=== PATIENT | female | born 1965 | race Two or more races ===

== ENCOUNTER 2020-10-24 17:01 | Outpatient (REF) | payer MEDICARE, MEDICAID, SELFPAY | END 2020-10-24 17:02 | disposition home or self-care (01) | LOC: HO.LNP 17:01 | PROVIDERS: Visit Provider Internal Medicine | DX: Z20.828 Contact with and (suspected) exposure to other viral communicable diseases (principal) | CPT/HCPCS: U0003 ==

== ENCOUNTER 2021-03-29 11:30 | Outpatient (REF) | payer MEDICARE, MEDICAID, SELFPAY ==
[2021-03-29 13:24] LABS: MANUAL DIFF FLAG NO
[2021-03-29 13:30] LABS: Basophils Absolute Auto 0.1 X10*3/uL (0.0-0.2); Eosinophils Absolute Auto 0.2 X10*3/uL (0.0-0.4); Eosinophils Percent Auto 2.1 % (0-4); Hematocrit 42.1 % (37-47); Hemoglobin 14.3 g/dl (12.0-16.0); Imm Gran Abs Auto 0.02 X10*3/uL (0.00-0.03); Imm Gran Pct Auto 0.2 % (0.0-0.4); Lymphocytes Absolute Auto 2.4 X10*3/uL (1.2-4.9); Lymphocytes Percent Auto 29.3 % (20-40); Mean Corpuscular Hemoglobin 29.8 pg (27.0-33.0); Mean Corpuscular Volume 87.7 fL (80-98); Mean Platelet Volume 9.8 fL (9.4-12.3); Monocytes Absolute Auto 0.6 X10*3/uL (0.1-1.2); Monocytes Percent Auto 7.1 % (2-11); Neutrophils Percent Auto 60.3 % (45-73); Platelet Count 337 X10*3/uL (160-400); Red Cell Distribution Width 12.5 % (11.0-16.0); White Blood Count 8.3 X10*3/uL (4.8-10.8)
[2021-03-29 13:49] LABS: Appearance Urine HAZY; Color Urine YELLOW; Glucose Urine UA NEG (NEG); Leukocyte Esterase Urine 1+ (NEG); Nitrite Urine NEG (NEG); Specific Gravity - Urine 1.025 (1.005-1.025); Urine Blood NEG (NEG); Urine Ketones NEG (NEG); Urine Protein NEG (NEG-TRACE)
[2021-03-29 13:58] LABS: RBC Urine 0 /HPF (0); Squamous Epithelial Cell Urine 1+ /LPF
[2021-03-29 14:14] LABS: Alanine Aminotransferase 24 U/L (0-31); Albumin Level 4.3 g/dL (3.5-5.0); Alkaline Phosphatase 115 U/L (39-117); Anion Gap 13 (12-20); Aspartate Amino Transferase 15 U/L (5-31); Bilirubin Total 0.9 mg/dL (0.0-1.0); Blood Urea Nitrogen 11 mg/dL (9-16); Chloride 106 mmol/L (96-108); Cholesterol 154 mg/dL; Estimated Glomerular Filt Rate > 60; Glucose Fasting 152 mg/dL (60-99); HDL Cholesterol 31 mg/dL; LDL Cholesterol Calculated 96 mg/dl; Phosphorus 3.3 mg/dL (2.7-4.5); Potassium 4.4 mmol/L (3.3-5.1); Sodium 138 mmol/L (135-145); Total Protein 7.3 g/dL (6.5-8.0); Triglycerides 135 mg/dL
[2021-03-29 14:16] LABS: Carbon Dioxide 23 mmol/L (22-29)
[2021-03-29 14:21] LABS: Estimated Average Glucose 237 mg/dL; Hemoglobin A1c % 9.9 %
[2021-03-29 14:27] LABS: Free T4 (Free Thyroxine) 2.47 ng/dL (0.71-1.85); Thyroid Stimulating Hormone < 0.01 uIU/mL (0.32-4.0); Vitamin D 25-OH Total 9.8 ng/mL (>30)
[2021-03-29 14:36] LABS: Creatinine Urine 121.06 mg/dL; Microalbum/Creatinine Ratio Ur 14.8 ug/mg cr
== END 2021-03-29 11:31 | disposition home or self-care (01) ==
LOC: HO.10HDL 11:30
PROVIDERS: Visit Provider Internal Medicine
DX: E11.9 Type 2 diabetes mellitus without complications (principal); I10 Essential (primary) hypertension; M06.9 Rheumatoid arthritis, unspecified; E03.9 Hypothyroidism, unspecified; E78.00 Pure hypercholesterolemia, unspecified
CPT/HCPCS: 36415; 80053; 80061; 81001; 82043; 82306; 83036; 84100; 84439; 84443; 85025

== ENCOUNTER 2021-04-13 11:28 | Outpatient (REF) | payer MEDICARE, MEDICAID, SELFPAY ==
--- NOTE | ~2021-04-13 | MM_ITS ---
EXAMINATION: MM SCREENING DIGITAL BREAST TOMOSYNTHESIS, BILATERAL CLINICAL INFORMATION: Screening. Asymptomatic. The lifetime risk of breast cancer based on the Tyrer-Cuzick Model is 5%. COMPARISON: Mammography: 08/20/2019, 02/11/2008 TECHNIQUE: Digital breast tomosynthesis is performed in both the craniocaudal and mediolateral oblique views along with computer-aided detection (CAD). Synthesized 2D images are generated from the tomosynthesis. FINDINGS: There are scattered areas of fibroglandular density (ACR BI-RADS breast composition Category b). There are no significant masses, abnormal calcifications, or other abnormalities. Parenchymal pattern is similar to prior exam. The axilla and skin contours are unremarkable. No significant changes. MM/MM tomosynthesis screening BI IMPRESSION: No mammographic evidence of malignancy. ASSESSMENT: BI-RADS 1: Negative RECOMMENDATION: Routine annual mammography screening. This patient's information was entered into a reminder system with a target due date for their next mammogram.
== END 2021-04-13 11:29 | disposition home or self-care (01) ==
LOC: HO.MAMMO 11:28
PROVIDERS: PCP Internal Medicine; Visit Provider Internal Medicine
DX: Z12.31 Encounter for screening mammogram for malignant neoplasm of breast (principal)
CPT/HCPCS: 77063; 77067

== ENCOUNTER 2021-04-17 12:53 | Outpatient (REF) | payer MEDICARE, MEDICAID, SELFPAY ==
[2021-04-21 09:27] LABS: HPV mRNA E6/E7 rflx Not Detected (Not Detected)
== END 2021-04-17 12:54 | disposition home or self-care (01) ==
LOC: HO.LAB 12:53
PROVIDERS: PCP Internal Medicine; Visit Provider Obstetrics & Gynecology
DX: Z01.419 Encounter for gynecological examination (general) (routine) without abnormal findings (principal); R10.31 Right lower quadrant pain
CPT/HCPCS: 87624; 88142

== ENCOUNTER 2021-04-27 11:14 | Outpatient (REF) | payer MEDICARE, MEDICAID, SELFPAY ==
--- NOTE | ~2021-04-27 | US_ITS ---
EXAMINATION: PELVIC ULTRASOUND CLINICAL INFORMATION: Pain. Post hysterectomy. COMPARISON: None TECHNIQUE: Transabdominal and transvaginal pelvic ultrasound was marked. Transvaginal exam was performed for visualization of. FINDINGS: The uterus has been removed. The ovaries are normal-appearing. The right ovary measures 2.4 x 0.9 x 1.6 cm. The left ovary measures 1.6 x 1 x 1.2 cm. There is no mass or fluid in the pelvis. US/US pelvic and transvaginal IMPRESSION: Post hysterectomy. Normal-appearing ovaries.
== END 2021-04-27 11:15 | disposition home or self-care (01) ==
LOC: HO.US 11:14
PROVIDERS: Visit Provider Obstetrics & Gynecology
DX: R10.2 Pelvic and perineal pain (principal)
CPT/HCPCS: 76830; 76856

== ENCOUNTER → 2021-05-10 12:04 | Outpatient (BNVA) | payer MEDICARE, MEDICAID, SELFPAY | PROVIDERS: PCP Internal Medicine; Visit Provider Obstetrics & Gynecology | DX: R10.2 Pelvic and perineal pain (principal) | CPT/HCPCS: Q3014 ==

== ENCOUNTER 2022-03-19 15:52 | Outpatient (REF) | payer MEDICARE, MEDICAID, SELFPAY ==
[2022-03-19 17:09] LABS: Estimated Average Glucose 269 mg/dL
[2022-03-19 17:25] LABS: Anion Gap 13 (12-20); Blood Urea Nitrogen 9 mg/dL (9-16); Calcium 10.3 mg/dL (8.4-10.2); Carbon Dioxide 24 mmol/L (22-29); Chloride 103 mmol/L (96-108); Estimated Glomerular Filt Rate > 60; Glucose Random 312 mg/dL (60-115); Potassium 4.4 mmol/L (3.3-5.1); Sodium 136 mmol/L (135-145)
[2022-03-19 17:29] LABS: Creatinine Urine 119.39 mg/dL; Microalbum/Creatinine Ratio Ur 9.2 ug/mg cr
[2022-03-19 17:44] LABS: Free T4 (Free Thyroxine) 0.76 ng/dL (0.71-1.85); Thyroid Stimulating Hormone 2.88 uIU/mL (0.32-4.0)
== END 2022-03-19 15:53 | disposition home or self-care (01) ==
LOC: HO.LAB 15:52
PROVIDERS: PCP Internal Medicine; Visit Provider Internal Medicine
DX: E03.9 Hypothyroidism, unspecified (principal); I10 Essential (primary) hypertension; E11.9 Type 2 diabetes mellitus without complications; M06.9 Rheumatoid arthritis, unspecified
CPT/HCPCS: 36415; 80048; 82043; 83036; 84439; 84443

== ENCOUNTER 2022-04-16 11:48 | Outpatient (REF) | payer OTHER, SELFPAY ==
--- NOTE | ~2022-04-16 | MM_ITS ---
EXAMINATION: MM SCREENING DIGITAL BREAST TOMOSYNTHESIS, BILATERAL CLINICAL INFORMATION: Screening. Asymptomatic. The lifetime risk of breast cancer based on the Tyrer-Cuzick Model is 4.8%. COMPARISON: Mammography: April 13, 2021 and studies dating back to February 11, 2008 TECHNIQUE: Digital breast tomosynthesis is performed in both the craniocaudal and mediolateral oblique views along with computer-aided detection (CAD). Synthesized 2D images are generated from the tomosynthesis. FINDINGS: There are scattered areas of fibroglandular density (ACR BI-RADS breast composition Category b). There are no significant masses, abnormal calcifications, or other abnormalities. MM/MM tomosynthesis screening BI IMPRESSION: There are no significant changes from prior study. ASSESSMENT: BI-RADS 1: Negative RECOMMENDATION: Routine annual mammography screening. This patient's information was entered into a reminder system with a target due date for their next mammogram.
== END 2022-04-16 11:49 | disposition home or self-care (01) ==
LOC: HO.MAMMO 11:48
PROVIDERS: Visit Provider Internal Medicine
DX: Z12.31 Encounter for screening mammogram for malignant neoplasm of breast (principal)
CPT/HCPCS: 77063; 77067

== ENCOUNTER 2022-07-03 14:14 | Outpatient (REF) | payer OTHER, SELFPAY ==
[2022-07-03 15:37] LABS: Blood Urea Nitrogen 9 mg/dL (9-16); Estimated Glomerular Filt Rate > 60
== END 2022-07-03 14:15 | disposition home or self-care (01) ==
LOC: HO.LAB 14:14
PROVIDERS: PCP Internal Medicine; Visit Provider Obstetrics & Gynecology
DX: R10.2 Pelvic and perineal pain (principal)
CPT/HCPCS: 36415; 82565; 84520

== ENCOUNTER 2022-07-04 08:23 | Outpatient (REF) | payer OTHER, SELFPAY ==
--- NOTE | ~2022-07-04 | CT_ITS ---
EXAMINATION: CT ABDOMEN AND PELVIS WITH CONTRAST CLINICAL INFORMATION: Pelvic and perineal pain. COMPARISON: Ultrasound pelvis 04/27/[address] abdomen 02/04/2010. TECHNIQUE: Multidetector volumetric images were obtained from the superior aspect of the liver through the pubic symphysis following administration 85 mL of Omnipaque 350 intravenous contrast. Sagittal and coronal reformatted images were obtained on the technologist's workstation. Oral contrast: No This CT examination was performed using dose optimization techniques as appropriate, variously including the following: *Automated exposure control *Adjustment of mA and/or kV according to patient size (this includes techniques or standardized protocols for targeted exams where dose is matched to indication/reason for exam; i.e. extremities or head) *Use of iterative reconstruction technique DLP: 476 mGy-cm FINDINGS: LUNG BASES: Mild atelectatic changes are seen in lingula. Both lung bases are clear. There are trace coronary artery calcifications. LIVER, GALLBLADDER, AND BILIARY TREE: The liver is normal in size, shape, and diffusely hypoattenuated. No focal hepatic lesion or biliary ductal dilatation is present. The gallbladder has been surgically removed. PANCREAS: Unremarkable. SPLEEN: Unremarkable. ADRENAL GLANDS: Unremarkable. KIDNEYS AND URETERS: The kidneys are normal in size, shape, and attenuation. No hydronephrosis, hydroureter, or calculi seen. No perinephric stranding. BLADDER: Unremarkable. GASTROINTESTINAL TRACT: There is scattered stool and gas seen throughout the colon without distention. There is diffuse sigmoid colon diverticulosis without mural thickening or pericolic fat stranding. Oral contrast opacified small bowel loops are normal caliber. ABDOMINAL WALL: No significant hernia is appreciated. LYMPH NODES: Normal. VASCULAR: Abdominal aorta is normal caliber. There is a retroaortic left renal vein. PELVIC VISCERA: The uterus is surgically absent. No free fluid. No adnexal mass seen. OSSEOUS STRUCTURES: Unremarkable. CT/CT abdomen pelvis w con IMPRESSION: No acute process seen in the abdomen especially no abnormality seen in the perineal or pelvic region. Diffuse sigmoid diverticulosis without diverticulitis. Mild hepatic steatosis with cholecystectomy. Fleischner guidelines were followed.
[2022-07-04] MEDS: Barium Sulfate Oral (Mocha) 450 ML ORAL.SUSP 900 ML PO (11:09)
[2022-07-04] MEDS: iohexoL 350 MG/ML 100 ML INFUS..BTL 85 ML IV (11:09)
== END 2022-07-04 08:24 | disposition home or self-care (01) ==
LOC: HO.CT 08:23
PROVIDERS: PCP Internal Medicine; Visit Provider Obstetrics & Gynecology
DX: R10.2 Pelvic and perineal pain (principal)
CPT/HCPCS: 74177; Q9967

== ENCOUNTER → 2022-08-28 08:46 | Outpatient (BNVA) | payer OTHER, SELFPAY | PROVIDERS: Visit Provider Obstetrics & Gynecology | DX: R10.2 Pelvic and perineal pain (principal) | CPT/HCPCS: 99212 ==

== ENCOUNTER 2022-08-28 09:23 | Outpatient (REF) | payer OTHER, SELFPAY ==
[2022-08-28 11:32] LABS: Estimated Average Glucose 258 mg/dL; Hemoglobin A1c % 10.6 %
[2022-08-28 11:58] LABS: Alanine Aminotransferase 17 U/L (0-31); Albumin Level 3.9 g/dL (3.5-5.0); Alkaline Phosphatase 93 U/L (39-117); Anion Gap 18 (12-20); Aspartate Amino Transferase 13 U/L (5-31); Bilirubin Total 0.8 mg/dL (0.0-1.0); Blood Urea Nitrogen 8 mg/dL (9-16); Calcium 9.1 mg/dL (8.4-10.2); Carbon Dioxide 20 mmol/L (22-29); Chloride 101 mmol/L (96-108); Estimated Glomerular Filt Rate > 60; Potassium 4.5 mmol/L (3.3-5.1); Sodium 134 mmol/L (135-145); Total Protein 6.4 g/dL (6.5-8.0)
[2022-08-28 12:00] LABS: Glucose Random 476 mg/dL (60-115)
[2022-08-28 12:21] LABS: Free T4 (Free Thyroxine) 1.24 ng/dL (0.71-1.85); Thyroid Stimulating Hormone 0.01 uIU/mL (0.32-4.0)
== END 2022-08-28 09:24 | disposition home or self-care (01) ==
LOC: HO.10HDL 09:23
PROVIDERS: Visit Provider Internal Medicine
DX: E11.9 Type 2 diabetes mellitus without complications (principal); M06.9 Rheumatoid arthritis, unspecified; E03.9 Hypothyroidism, unspecified; Z79.899 Other long term (current) drug therapy
CPT/HCPCS: 36415; 80053; 83036; 84439; 84443

== ENCOUNTER 2023-02-22 09:33 | Outpatient (REF) | payer MEDICARE, MEDICAID, SELFPAY ==
[2023-02-22 10:36] LABS: MANUAL DIFF FLAG NO
[2023-02-22 10:55] LABS: Basophils Absolute Auto 0.1 X10*3/uL (0.0-0.2); Eosinophils Absolute Auto 0.4 X10*3/uL (0.0-0.4); Eosinophils Percent Auto 5.3 % (0-4); Hematocrit 42.4 % (37.0-47.0); Hemoglobin 14.3 g/dl (12.0-16.0); Imm Gran Abs Auto 0.03 X10*3/uL (0.00-0.03); Imm Gran Pct Auto 0.4 % (0.0-0.4); Lymphocytes Percent Auto 28.7 % (20-40); Mean Corpuscular HGB Conc 33.7 g/dl (31.0-35.0); Mean Corpuscular Volume 88.9 fL (80.0-98.0); Mean Platelet Volume 10.2 fL (9.4-12.3); Monocytes Absolute Auto 0.6 X10*3/uL (0.1-1.2); Monocytes Percent Auto 8.7 % (2-11); Neutrophils Absolute Auto 3.9 x10*3/uL (2.0-8.3); Neutrophils Percent Auto 55.9 % (45-73); Platelet Count 358 X10*3/uL (160-400); Red Blood Count 4.77 X10*6/uL (4.20-5.50); Red Cell Distribution Width 12.5 % (11.0-16.0); White Blood Count 6.9 X10*3/uL (4.8-10.8)
[2023-02-22 11:23] LABS: Estimated Average Glucose 223 mg/dL; Hemoglobin A1c % 9.4 %
[2023-02-22 12:31] LABS: Alanine Aminotransferase 13 U/L (0-31); Albumin Level 4.4 g/dL (3.5-5.0); Alkaline Phosphatase 99 U/L (39-117); Anion Gap 13 (12-20); Aspartate Amino Transferase 11 U/L (5-31); Bilirubin Total 1.2 mg/dL (0.0-1.0); Blood Urea Nitrogen 13 mg/dL (9-16); Calcium 10.2 mg/dL (8.4-10.2); Carbon Dioxide 23 mmol/L (22-29); Chloride 104 mmol/L (96-108); Cholesterol 106 mg/dL; Estimated Glomerular Filt Rate 59; Potassium 4.9 mmol/L (3.3-5.1); Sodium 135 mmol/L (135-145)
[2023-02-22 12:32] LABS: Free T4 (Free Thyroxine) 1.62 ng/dL (0.71-1.85); HDL Cholesterol 25 mg/dL; LDL Cholesterol Calculated 55 mg/dl; Thyroid Stimulating Hormone < 0.01 uIU/mL (0.32-4.0); Triglycerides 130 mg/dL; Vitamin D 25-OH Total 18.4 ng/mL (>30)
[2023-02-22 12:49] LABS: Glucose Fasting 376 mg/dL (60-99)
== END 2023-02-22 09:34 | disposition home or self-care (01) ==
LOC: HO.10HDL 09:33
PROVIDERS: Visit Provider Internal Medicine
DX: Z00.00 Encounter for general adult medical examination without abnormal findings (principal); E03.9 Hypothyroidism, unspecified; E11.22 Type 2 diabetes mellitus with diabetic chronic kidney disease; N18.9 Chronic kidney disease, unspecified
CPT/HCPCS: 36415; 80053; 80061; 82306; 83036; 84439; 84443; 85025

== ENCOUNTER 2023-04-18 12:01 | Outpatient (REF) | payer MEDICARE, MEDICAID, SELFPAY ==
--- NOTE | ~2023-04-18 | MM_ITS ---
EXAMINATION: MM SCREENING DIGITAL BREAST TOMOSYNTHESIS, BILATERAL CLINICAL INFORMATION: Screening. Asymptomatic. The lifetime risk of breast cancer based on the Tyrer-Cuzick Model is 5%. COMPARISON: Mammography: 04/16/2022, 04/13/2021, 08/20/2019 TECHNIQUE: Digital breast tomosynthesis is performed in both the craniocaudal and mediolateral oblique views along with computer-aided detection (CAD). Synthesized 2D images are generated from the tomosynthesis. FINDINGS: There are scattered areas of fibroglandular density (ACR BI-RADS breast composition Category b). There are no significant masses, abnormal calcifications, or other abnormalities. Parenchymal pattern is similar to prior studies. There is no developing density or architectural abnormality. The axilla are similar to prior exams. The skin contours are unremarkable. No significant changes. MM/MM tomosynthesis screening BI IMPRESSION: No mammographic evidence of malignancy. ASSESSMENT: BI-RADS 2: Benign RECOMMENDATION: Routine annual mammography screening. This patient's information was entered into a reminder system with a target due date for their next mammogram.
== END 2023-04-18 12:02 | disposition home or self-care (01) ==
LOC: HO.MAMMO 12:01
PROVIDERS: PCP Internal Medicine; Visit Provider Internal Medicine
DX: Z12.31 Encounter for screening mammogram for malignant neoplasm of breast (principal)
CPT/HCPCS: 77063; 77067

== ENCOUNTER 2023-08-14 09:05 | Outpatient (AMB) | payer MEDICARE, MEDICAID, SELFPAY ==
--- NOTE | 2023-08-14 09:10 | A.OFFVIS_ITS ---
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 No complaints. Last Pap/HPV was negative in 05/01 Last Mammogram was BI-RADS 2 in 05/03 Last Colonoscopy PFSH Medical History Rheumatoid arthritis Cholecystectomy planned Hyperthyroidism Hypertension Diabetes Surgical History History of cholecystectomy Tubal ligation status H/O hysterectomy for benign disease Family History Maternal Aunt Uterine cancer Mother Diabetes Father Liver cancer Social History Patient Tobacco Use Status: Never used Tobacco Female Reproductive History Menstrual Age of Menarche: 11 Menopause type: surgical Total pregnancies: 4 Full term: 4 Number of Living Children: 3 Date of Mammogram: 04/18/23 Review of Systems Const All systems reviewed & are unremarkable except as noted in HPI and below Card Reports as per HPI and Reports no additional complaints Resp Reports as per HPI and Reports no additional complaints GI Reports as per HPI and Reports no additional complaints Reports as per HPI Physical Exam Vital Signs: Last Vital Signs BP 122/74 08/14/23 09:12 BMI result Body Mass Index 34.3 Const General: cooperative, healthy appearing and comfortable General: Yes bladder normal to palpation External Female Exam: No lesion Speculum Exam - Vagina: normal appearance of the vagina, normal vaginal dis charge and not erythematous Speculum Exam - Cervix: normal appearance of the cervix and normal palpation Bimanual exam- vagina & uterus: bladder normal to palpation, normal palpation and uterus absent Bimanual Exam- Adnexa, other: Other (No masses detected) Assessment & Plan Assessment & Plan (1) Well woman exam: Code(s): Z01.419 - Encounter for gynecological examination (general) (routine) without abnormal findings Plan: Co testing not indicated this year. Counseled the patient about the recommended dietary allowance of 1200 mg of Calcium & 600 IU of vitamin D. Instructions given the patient to schedule her next screening Mammogram in 05/04. The patient was referred to GI for screening colonoscopy . The patient was instructed to perform monthly self-breast exams and schedule annual exam in a year. All questions answered and the patient verbalized understanding. Orders: Referrals 2 Gastroenterology Referral Z12.11 - Encounter for screening for malignant neoplasm of colon Coding Level of Care Code Est Pt Prev Care 40-64y(00599) Diagnoses Well woman exam Z01.419
[2023-08-14 09:12] VITALS: BP 122/74; BMI 34.3
== END 2023-08-14 09:46 | disposition home or self-care (01) ==
PROVIDERS: PCP Internal Medicine; Visit Provider Obstetrics & Gynecology
DX: Z01.419 Encounter for gynecological examination (general) (routine) without abnormal findings (principal)
CPT/HCPCS: 99396

== ENCOUNTER → 2023-08-14 09:05 | Outpatient (BNVA) | payer MEDICARE, MEDICAID, SELFPAY | PROVIDERS: PCP Internal Medicine; Visit Provider Obstetrics & Gynecology ==

== ENCOUNTER 2023-10-09 10:30 | Outpatient (REF) | payer MEDICARE, MEDICAID, SELFPAY ==
[2023-10-12 15:08] LABS: H Pylori Breath Test Negative (Negative)
== END 2023-10-09 10:31 | disposition home or self-care (01) ==
LOC: HO.LNP 10:30
PROVIDERS: PCP Internal Medicine; Visit Provider Nurse Practitioner
DX: Z01.818 Encounter for other preprocedural examination (principal); K21.9 Gastro-esophageal reflux disease without esophagitis
CPT/HCPCS: 83013; 99202

== ENCOUNTER 2023-10-09 10:30 | Outpatient (AMB) | payer MEDICARE, MEDICAID, SELFPAY ==
--- NOTE | 2023-10-09 10:34 | A.OFFVIS_ITS ---
Intake Vital Signs 10/09/23 10:36 Height 4 ft 11 in Weight 172 lb BMI 34.7 BP 150/64 H Blood Pressure Location Lt brachial Position Sitting Pulse 78 Intake Visit Reasons: Colonoscopy Screening Intake Note: Patient presents to in office visit today as a new patient for colonoscopy screening. CC: Patient reports last colonoscopy was done about 20 years ago. She c/o a lot of heartburn. Denies other GI symptoms. 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 We have a primary care note with his largely illegible. PMX Hypertension Obesity -BMI of 34, 4 ft 11 170 lb Hyporthyroid Diabetes Insomnia Rheumatoid arthritis * SURGICAL HISTORY Cholecystectomy Tubal ligation Hysterectomy 2003 the colonoscopy-[place], normal * ALLERGIES: NKDA * [facility] LABS: Laboratory Tests 02/22/23 09:57 WBC 6.9 Hgb 14.3 Hct 42.4 Plt Count 358 Estimated GFR 59 Hemoglobin A1c % 9.4 Total Bilirubin 1.2 H AST 11 ALT 13 Alkaline Phosphata se 99 TSH < 0.01 L Free T4 1.62 TODAY'S VISIT She will be away from November to February. She tolerated her last scope w/o problems. She has occasional CIC likely r/t her thyroid, she has been having increased HB over the past year she can not ID any food triggers, but it is worse at night. She used to be on an acid reducing medication but she does not remember which 1. She is not on 1 currently. She has also never been educated about what diet and lifestyle changes may be needed to manage GERD so will print her a diet list and we discussed weight management. We also discussed eating earlier in the day which she has already been doing but she is trying to lose weight. Will start on famotidine which she can take it supper time and evaluate whether not she needs an endoscopy since she sometimes has the feeling of food moving down her esophagus but not out right dysphagia. She denies any cardiac or respiratory problems. There are no prior problems with anesthesia or sedation. No ID problems. There is no known FHX of crc or polyps. [facility] Medical History (Updated 10/09/23 @ 10:57 by AJAY Zambrano) Well woman exam Rheumatoid arthritis Cholecystectomy planned Hypertension Diabetes Surgical History History of cholecystectomy Tubal ligation status H/O hysterectomy for benign disease Family History Maternal Aunt Uterine cancer Mother Diabetes Father Liver cancer Social History (Updated 10/09/23 @ 10:40 by Troy Khan [facility]) Alcohol intake: never Patient Tobacco Use Status: Never used Tobacco Female Reproductive History Menstrual Age of Menarche: 11 Review of Systems Const Denies fatigue, Denies fever(s), Denies night sweats, Denies poor appetite and Denies weight loss ENT Reports Normal hearing present, Denies dental pain, Denies dysphagia, Denies hearing loss, Denies mouth pain, Reports odynophagia, Denies throat swelling, Denies tongue swelling and Reports other (Dentition adequate) Card Reports no additional complaints Resp Reports no additional complaints GI Denies abdominal pain, Denies melena, Denies bloating, Denies hematochezia, Reports constipation, Denies GI cramping, Denies dysphagia, Denies excessive flatus, Denies early satiety, Reports heartburn, Denies diarrhea, Denies nausea, Reports odynophagia, Denies vomiting and Denies hematemesis Skin/Breast Denies pruritus, Denies lesions, Denies rash and Denies jaundice Neuro Reports Normal hearing present and Denies Abnormal speech present Endo Denies fatigue Aller/Immun Denies throat swelling and Denies tongue swelling Physical Exam Vital Signs: Last Vital Signs Pulse 78 10/09/23 10:36 BP 150/64 H 10/09/23 10:36 BMI result Body Mass Index 34.7 Const General: cooperative, no acute distress, well developed and well groomed Nutritional Appearance: well nourished and obese Orientation/consciousness: oriented to person, oriented to place and oriented to time Limitations: No language barrier HEENT Head: Yes normocephalic and Yes atraumatic Eyes Other: glasses General: appearance normal, both eyes and all related structures Pupils: Equal, round and reactive pupils present Neck Neck: Yes normal visual inspection and Yes no lymphadenopathy Thyroid: Thyroid normal Resp Effort & Inspection: normal respiratory effort and able to speak in complete sentences Auscultation: clear to auscultation bilaterally Cardio Rate: regular rate Rhythm: regular rhythm Heart sounds: Normal, physiologic split S2 sound present Peripheral pulses: radial pulses present and posterior tibial pulses present GI Inspection: No distended, Yes Abdominal panniculus present, Yes obesity and Yes striae Palpation (GI): Soft to palpation, nontender, no guarding, not rigid and No hepatosplenomegaly present Percussion: Yes normal to percussion Auscultation: normal bowel sounds Rectal Exam - Female: deferred Skin General skin exam: no rashes or lesions noted, turgor normal, skin not dry, no jaundice, No spider nevi and no striae Rashes: no rashes Nails: normal Neuro General: oriented to person, oriented to place and oriented to time Cranial nerves: Yes Equal, round and reactive pupils present and Yes Normal hearing present Speech: No Abnormal speech present Extrem General: Yes normal to inspection, No clubbing, No cyanosis and No edema Psych Appearance: grossly normal and well kempt Mental Status: mental status grossly normal Speech and movement: Normal speech and movement present Affect: normal affect Attitude: cooperative Thought process: Normal thought process present and not confabulating Thought content: Normal thought content present Insight: Fair insight present (Psych) Judgement: Fair judgement present (Psych) Assessment & Plan Assessment & Plan (1) Pre-op examination: Code(s): Z01.818 - Encounter for other preprocedural examination (2) H/O colonoscopy: Code(s): Z98.890 - Other specified postprocedural states (3) GERD (gastroesophageal reflux disease): Code(s): K21.9 - Gastro-esophageal reflux disease without esophagitis Plan She will be away from November to February. She tolerated her last scope w/o problems. She has occasional CIC likely r/t her thyroid, she has been having increased HB over the past year she can not ID any food triggers, but it is worse at night. She used to be on an acid reducing medication but she does not remember which 1. She is not on 1 currently. She has also never been educated about what diet and lifestyle changes may be needed to manage GERD so will print her a diet list and we discussed weight management. We also discussed eating earlier in the day which she has already been doing but she is trying to lose weight. Will start on famotidine which she can take it supper time and evaluate whether not she needs an endoscopy since she sometimes has the feeling of food moving down her esophagus but not out right dysphagia. She denies any cardiac or respiratory problems. There are no prior problems with anesthesia or sedation. No ID problems. There is no known FHX of crc or polyps. Orders: Orders Colonoscopy - GI Use Only 10/09/23 H Pylori Breath Test 10/09/23 Medications: New famotidine (Pepcid) 40 mg PO .qac supper 30 tabs 6RF K21.9 - Gastro-esophageal reflux disease without esophagitis sod picosulf-mag ox-citric ac 10 mg-3.5 gram- 12 gram/160 mL (Clenpiq) take first dose at 5-9PM evening before colonoscopy; 2nd dose the next day approximately 5 hrs before colonoscopy 160 mL PO DAILY 320 mL 0RF 2 doses Coding Level of Care Code New Pt Level 3 (53596) Diagnoses Pre-op examination Z01.818 H/O colonoscopy Z98.890 GERD (gastroesophageal reflux disease) K21.9
[2023-10-09 10:36] VITALS: BP 150/64; PULSE 78; BMI 34.7
== END 2023-10-09 11:34 | disposition home or self-care (01) ==
PROVIDERS: PCP Internal Medicine; Visit Provider Nurse Practitioner
DX: K21.9 Gastro-esophageal reflux disease without esophagitis (principal)
CPT/HCPCS: 99203

== ENCOUNTER 2024-01-01 14:36 | Outpatient (REF) | payer MEDICARE, MEDICAID, SELFPAY ==
[2024-01-01 14:49] LABS: MANUAL DIFF FLAG NO
[2024-01-01 15:19] LABS: Basophils Absolute Auto 0.1 X10*3/uL (0.0-0.2); Basophils Percent Auto 0.7 % (0-2); Eosinophils Absolute Auto 0.2 X10*3/uL (0.0-0.4); Eosinophils Percent Auto 1.6 % (0-4); Hematocrit 42.7 % (37.0-47.0); Hemoglobin 14.3 g/dl (12.0-16.0); Imm Gran Abs Auto 0.06 X10*3/uL (0.00-0.03); Imm Gran Pct Auto 0.6 % (0.0-0.4); Lymphocytes Absolute Auto 2.6 X10*3/uL (1.2-4.9); Lymphocytes Percent Auto 23.6 % (20-40); Mean Corpuscular HGB Conc 33.5 g/dl (31.0-35.0); Mean Corpuscular Hemoglobin 30.4 pg (27.0-33.0); Mean Corpuscular Volume 90.7 fL (80.0-98.0); Mean Platelet Volume 9.8 fL (9.4-12.3); Monocytes Absolute Auto 0.6 X10*3/uL (0.1-1.2); Monocytes Percent Auto 5.4 % (2-11); Neutrophils Absolute Auto 7.4 x10*3/uL (2.0-8.3); Neutrophils Percent Auto 68.1 % (45-73); Platelet Count 377 X10*3/uL (160-400); Red Blood Count 4.71 X10*6/uL (4.20-5.50); Red Cell Distribution Width 12.8 % (11.0-16.0); White Blood Count 10.9 X10*3/uL (4.8-10.8)
[2024-01-01 15:20] LABS: Estimated Average Glucose 258 mg/dL; Hemoglobin A1c % 10.6 % (<6.0)
[2024-01-01 15:57] LABS: Alanine Aminotransferase 19 U/L (0-31); Albumin Level 4.2 g/dL (3.5-5.0); Alkaline Phosphatase 102 U/L (39-117); Anion Gap 13 (12-20); Aspartate Amino Transferase 14 U/L (5-31); Bilirubin Total 0.5 mg/dL (0.0-1.0); Blood Urea Nitrogen 9 mg/dL (9-16); Calcium 10.2 mg/dL (8.4-10.2); Carbon Dioxide 25 mmol/L (22-29); Chloride 105 mmol/L (96-108); Estimated Glomerular Filt Rate > 60; Glucose Random 260 mg/dL (60-115); Potassium 4.4 mmol/L (3.3-5.1); Sodium 139 mmol/L (135-145); Total Protein 7.3 g/dL (6.5-8.0)
[2024-01-01 16:02] LABS: Thyroid Stimulating Hormone 0.24 uIU/mL (0.32-4.0)
[2024-01-01 16:11] LABS: Vitamin B12 580 pg/mL (200-900)
== END 2024-01-01 14:37 | disposition home or self-care (01) ==
LOC: HO.LAB 14:36
PROVIDERS: PCP Internal Medicine; Visit Provider Internal Medicine
DX: E03.9 Hypothyroidism, unspecified (principal); R53.83 Other fatigue; M06.9 Rheumatoid arthritis, unspecified; E11.9 Type 2 diabetes mellitus without complications
CPT/HCPCS: 36415; 80053; 82607; 83036; 84439; 84443; 85025

== ENCOUNTER → 2024-05-12 15:15 | Outpatient (BNV) | payer MEDICARE, MEDICAID, SELFPAY | PROVIDERS: PCP Internal Medicine; Visit Provider Radiology Diagnostic Radiology | DX: Z12.31 Encounter for screening mammogram for malignant neoplasm of breast (principal) | CPT/HCPCS: 77063; 77067 ==

== ENCOUNTER 2024-05-12 15:30 | Outpatient (REF) | payer MEDICARE, MEDICAID, SELFPAY | END 2024-05-12 15:31 | disposition home or self-care (01) | LOC: HO.MAMMO 15:30 | PROVIDERS: PCP Internal Medicine; Visit Provider Internal Medicine | DX: Z12.31 Encounter for screening mammogram for malignant neoplasm of breast (principal) | CPT/HCPCS: 77063; 77067 ==

== ENCOUNTER → 2024-10-14 11:21 | Outpatient (BNVA) | payer MEDICARE, MEDICAID, SELFPAY | PROVIDERS: PCP Internal Medicine; Visit Provider Obstetrics & Gynecology | DX: Z01.419 Encounter for gynecological examination (general) (routine) without abnormal findings (principal); R10.2 Pelvic and perineal pain | CPT/HCPCS: 99212; G0101 ==

== ENCOUNTER 2024-10-14 11:28 | Outpatient (AMB) | payer MEDICARE, MEDICAID, SELFPAY ==
--- NOTE | 2024-10-14 11:23 | A.OFFVIS_ITS ---
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 Complaining of right-sided pelvic discomfort on and off , no associated fever or chills, no vaginal bleeding or discharge, no urinary or GI symptoms. Last Pap/HPV was negative in 05/01 Last Mammogram was BI-RADS 1 in 06/03 No previous screening Colonoscopy [facility] Medical History (Updated 10/14/24 @ 11:30 by Jair Echevarria MD) Well woman exam Rheumatoid arthritis Cholecystectomy planned Hypertension Diabetes Surgical History History of cholecystectomy Tubal ligation status H/O hysterectomy for benign disease Family History Maternal Aunt Uterine cancer Mother Diabetes Father Liver cancer Social History Alcohol intake: never Patient Tobacco Use Status: Never used Tobacco Female Reproductive History Menstrual Age of Menarche: 11 Menopause type: surgical Total pregnancies: 7 Full term: 4 Number of Living Children: 3 Ab spontaneous: 2 Date of Mammogram: 05/12/24 Review of Systems Const All systems reviewed & are unremarkable except as noted in HPI and below Card Reports as per HPI Resp Reports as per HPI GI Reports as per HPI and Reports no additional complaints Reports as per HPI Physical Exam Vital Signs: Last Vital Signs BP 118/62 10/14/24 11:28 BMI result Body Mass Index 34.3 Const General: cooperative, healthy appearing and comfortable Chest Chest palpation & inspection: normal inspection of the chest and normal palpation of entire chest wall Breast/axilla inspection: normal inspection of the breasts and normal inspection of the axillae Breast/axilla palpation: normal palpation of the breasts, normal palpation of the axillae and no axillary lymphadenopathy Resp Effort & Inspection: normal respiratory effort Auscultation: clear to auscultation bilaterally Percussion: percussion normal Cardio Palpation: normal PMI Rate: regular rate Rhythm: regular rhythm Heart sounds: no murmurs and no rubs Peripheral pulses: Peripheral pulses 2+ throughout GI Inspection: Yes normal to inspection Palpation (GI): Soft to palpation, nontender, no guarding, not rigid and No hepatosplenomegaly present Percussion: Yes normal to percussion Auscultation: normal bowel sounds Rectal Exam - Female: deferred General: Yes bladder normal to palpation External Female Exam: No lesion Speculum Exam - Vagina: normal appearance of the vagina, normal palpation, normal vaginal discharge and not erythematous Speculum Exam - Cervix: normal appearance of the cervix and normal palpation Bimanual exam- vagina & uterus: normal bimanual exam, normal palpation, bladder normal to palpation, normal palpation and uterus absent Bimanual Exam- Adnexa, other: normal adnexae, no masses and no tenderness Assessment & Plan Assessment & Plan (1) Well woman exam: Code(s): Z01.419 - Encounter for gynecological examination (general) (routine) without abnormal findings Category: Medical Plan: Co testing not indicated this year. Counseled the patient about the recommended dietary allowance of 1200 mg of Calcium & 600 IU of vitamin D. Instructions given the patient to schedule next screening Mammogram in 06/04. The patient was referred to GI for screening colonoscopy . The patient was instructed to perform monthly self-breast exams and schedule annual exam in a year. All questions answered and the patient verbalized understanding. (2) Female pelvic pain: Code(s): R10.2 - Pelvic and perineal pain Category: Medical Plan: Urine dip done in the office was negative. pelvic ultrasound ordered. Discussed with the patient the differential diagnosis of pelvic pain including but not limited to adnexal, GI the (Irritable bowel syndrome, diverticulitis, others), musculoskeletal, myofascial pain abdominal wall , adhesions, endometriosis, psychological and others causes. Will check results and treat accordingly. All questions answered, the patient verbalized understanding. Instructed the patient to schedule pelvic ultrasound and a follow-up appointment in 2 weeks. All questions answered, the patient verbalized understanding Orders: Orders US pelvic and transvaginal Today R10.2 - Pelvic and perineal pain Referrals Gastroenterology Referral Z12.11 - Encounter for screening for malignant neoplasm of colon Coding Level of Care Code Est Pt Level 3 (36845) Est Pt Prev Care 40-64y(73227) Diagnoses Well woman exam Z01.419 Female pelvic pain R10.2
[2024-10-14 11:28] VITALS: BP 118/62; BMI 34.3
== END 2024-10-14 11:52 | disposition home or self-care (01) ==
PROVIDERS: PCP Internal Medicine; Visit Provider Obstetrics & Gynecology
DX: R10.2 Pelvic and perineal pain (principal); Z01.419 Encounter for gynecological examination (general) (routine) without abnormal findings
CPT/HCPCS: 99213; G0101

== ENCOUNTER 2024-10-21 13:40 | Outpatient (REF) | payer MEDICARE, MEDICAID, SELFPAY | END 2024-10-21 13:41 | disposition home or self-care (01) | LOC: HO.US 13:40 | PROVIDERS: PCP Internal Medicine; Visit Provider Obstetrics & Gynecology | DX: R10.2 Pelvic and perineal pain (principal) | CPT/HCPCS: 76830; 76856 ==

== ENCOUNTER 2024-11-19 09:05 | Outpatient (REF) | payer MEDICARE, MEDICAID, SELFPAY ==
[2024-11-19 10:38] LABS: MANUAL DIFF FLAG NO
[2024-11-19 10:52] LABS: Basophils Percent Auto 0.6 % (0-2); Eosinophils Absolute Auto 0.1 X10*3/uL (0.0-0.4); Eosinophils Percent Auto 1.6 % (0-4); Hematocrit 43.2 % (37.0-47.0); Hemoglobin 14.5 g/dl (12.0-16.0); Imm Gran Abs Auto 0.03 X10*3/uL (0.00-0.03); Imm Gran Pct Auto 0.5 % (0.0-0.4); Lymphocytes Absolute Auto 1.9 X10*3/uL (1.2-4.9); Lymphocytes Percent Auto 30.1 % (20-40); Mean Corpuscular HGB Conc 33.6 g/dl (31.0-35.0); Mean Corpuscular Hemoglobin 30.7 pg (27.0-33.0); Mean Corpuscular Volume 91.3 fL (80.0-98.0); Mean Platelet Volume 9.8 fL (9.4-12.3); Monocytes Absolute Auto 0.8 X10*3/uL (0.1-1.2); Monocytes Percent Auto 11.7 % (2-11); Neutrophils Absolute Auto 3.6 x10*3/uL (2.0-8.3); Neutrophils Percent Auto 55.5 % (45-73); Platelet Count 344 X10*3/uL (160-400); Red Blood Count 4.73 X10*6/uL (4.20-5.50); Red Cell Distribution Width 12.8 % (11.0-16.0); White Blood Count 6.4 X10*3/uL (4.8-10.8)
[2024-11-19 10:59] LABS: Estimated Average Glucose 237 mg/dL; Hemoglobin A1C 322.7643 umol/L; Hemoglobin A1c % 9.9 % (<6.0); Total Hemoglobin (HGBA1C) 3807.3204 umol/L
[2024-11-19 11:30] LABS: Alanine Aminotransferase 24 U/L (0-31); Albumin Level 4.1 g/dL (3.5-5.0); Anion Gap 12 (12-20); Aspartate Amino Transferase 31 U/L (5-31); Bilirubin Total 0.9 mg/dL (0.0-1.0); Blood Urea Nitrogen 10 mg/dL (9-16); Carbon Dioxide 25 mmol/L (22-29); Chloride 104 mmol/L (96-108); Estimated Glomerular Filt Rate > 60; Glucose Random 276 mg/dL (60-115); Potassium 3.7 mmol/L (3.3-5.1); Sodium 137 mmol/L (135-145); Total Protein 7.1 g/dL (6.5-8.0)
[2024-11-19 12:27] LABS: Alkaline Phosphatase 91 U/L (39-117)
== END 2024-11-19 09:06 | disposition home or self-care (01) ==
LOC: HO.10HDL 09:05
PROVIDERS: Visit Provider Internal Medicine
DX: I12.9 Hypertensive chronic kidney disease with stage 1 through stage 4 chronic kidney disease, or unspecified chronic kidney disease (principal); E11.22 Type 2 diabetes mellitus with diabetic chronic kidney disease; N18.9 Chronic kidney disease, unspecified
CPT/HCPCS: 36415; 80053; 83036; 85025

== ENCOUNTER 2025-01-15 10:40 | Outpatient (AMB) | payer MEDICARE, MEDICAID, SELFPAY ==
--- NOTE | 2025-01-15 11:48 | MHC.OFFVIS ---
Intake Visit Reasons: ultrasound follow up Allergies No Known Allergies Allergy (Mild, Verified 10/14/24 11:29) NOT APPLICABLE HPI Comments Details: Presenting for follow-up regarding her pelvic pain. The patient is doing well and the pain has resolved . The following workup was done so far: Last visit urine dip was negative. Pelvic ultrasound showed the following: IMPRESSION: 1. The uterus is surgically absent. 2. Bilateral ovaries were not visualized. 3. No significant free fluid appreciated. 4. Limited visualization due to bowel gas and body habitus. [facility] Medical History Well woman exam Rheumatoid arthritis Cholecystectomy planned Hypertension Diabetes Surgical History History of cholecystectomy Tubal ligation status H/O hysterectomy for benign disease Family History Maternal Aunt Uterine cancer Mother Diabetes Father Liver cancer Social History Alcohol intake: never Patient Tobacco Use Status: Never used Tobacco Female Reproductive History Menstrual Age of Menarche: 11 Review of Systems Const All systems reviewed & are unremarkable except as noted in HPI and below Reports as per HPI and Reports no additional complaints GI Reports no additional complaints Reports no additional complaints Telehealth Telehealth Telehealth Platform: Telephone Location of provider rendering services: practice address Location of patient: address on file Patient Identification confirmed using: Name, : Yes Telehealth method: video Patient verbally consented to treatment: Yes Patient verbally consented to billing insurance company: Yes Patient informed of any privacy concerns related to visit: Yes Minutes spent on Phone/Video with Pt.: 3 Assessment & Plan Assessment & Plan (1) Female pelvic pain: Code(s): R10.2 - Pelvic and perineal pain Category: Medical Plan: Discussed with the patient the results of the workup done including negative urine dip, and pelvic ultrasound. Discussed with the patient the results the ultrasound were nonvisualization of the ovaries and status post hysterectomy, and that the ovarian pathology has not been ruled out . 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 Recommended for the patient to see her PCP for further workup for non sand control worker causes; if the all the results are negative and the patient's pelvic pain is persistent, instructions given to patient to call back for further testing. Meanwhile, instructions were given the patient to go to emergency room or call in case of fever above 100.4, heavy vaginal bleeding, persistence or worsening of her pelvic pain. All questions answered, the patient verbalized understanding. I spent a total of 20 minutes reviewing the chart, talking to the patient via video and documenting in the medical record. Coding Level of Care Code Tele Est Pt Level 3 (42180) Diagnoses Female pelvic pain R10.2
== END 2025-01-15 12:32 | disposition home or self-care (01) ==
LOC: HO.HWS 10:40
PROVIDERS: PCP Internal Medicine; Visit Provider Obstetrics & Gynecology
DX: R10.2 Pelvic and perineal pain (principal)
CPT/HCPCS: 99213

== ENCOUNTER 2025-01-27 15:06 | Outpatient (AMB) | payer MEDICARE, MEDICAID, SELFPAY ==
[2025-01-27 15:07] VITALS: BP 130/80; PULSE 84; RESP 14; TEMP 36.6; O2SAT 97; BMI 33.1
--- NOTE | 2025-01-27 15:07 | A.OFFPC_ITS ---
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[facility] [facility] Required: No Accompanied by: Self / Same As Patient Allergies No Known Allergies Allergy (Mild, Verified 01/27/25 15:07) NOT APPLICABLE Tobacco use date assessed: 01/27/25 Dental Screening Dental Screen Date: 01/27/25 Did you have a dental visit in the last 12 months?: No Did you have a dental problem in the last 6 months where you did not have access to dental care?: No [facility] Medical History Well woman exam Rheumatoid arthritis Cholecystectomy planned Hypertension Diabetes Surgical History History of cholecystectomy Tubal ligation status H/O hysterectomy for benign disease Family History Maternal Aunt Uterine cancer Mother Diabetes Father Liver cancer Social History (Updated 01/27/25 @ 15:16 by JOHN Barrera) Housing: Apartment Alcohol intake: never Patient Tobacco Use Status: Former Tobacco user service: No Current occupational status: retired and disabled Cognitive needs: No Hearing needs: No Vision needs: Yes (rx glasses) Female Reproductive History Menstrual Age of Menarche: 11 Questionnaire PHQ-9 Over the last 2 weeks, how often have you been bothered by any of the following problems? 1. Little interest or pleasure in doing things: not at all 2. Feeling down, depressed, or hopeless: not at all 3. Trouble falling or staying asleep, or sleeping too much: not at all 4. Feeling tired or having little energy: not at all 5. Poor appetite or overeating: not at all 6. Feeling bad about yourself - or that you are a failure or have let yourself or your family down: not at all 7. Trouble concentrating on things, such as reading the newspaper or watching television: not at all 8. Moving or speaking so slowly that other people could have noticed. Or the opposite - being so fidgety or restless that you have been moving around a lot more than usual: not at all 9. Thoughts that you would be better off or of hurting yourself in some way: not at all Total score: 0 Source: Developed by Drs. Shaji Renner, Shoshana Shelton, Kj Pierre and colleagues, with an educational king from [employer]. Thrive Questionnaire Date Thrive assessed: 01/27/25 I am a: Patient What is your living situation today?: I have a steady place to live Within the past 12 months, did the food you bought not last and you didn't have the money to get more?: Never true Within the past 12 months, did you worry whether your food would run out before you got money to buy more?: Never true Do you have trouble paying for medicines?: No Do you have trouble getting transportation to medical appointments?: No Do you have trouble paying your heating and electricity bill?: No Do you have trouble taking care of your child, family member or friend?: No Do you have trouble with day-to-day activities such as bathing, preparing meals, shopping, managing finances, etc.?: No Are you currently unemployed and looking for a job?: No Are you interested in more education?: No Please select the resources that you would like help with: None THRIVE Score: 0 AUDIT C Alcohol Use Questionnaire (AUDIT-C) 1. How often do you have a drink containing alcohol?: Never 3. How often do you have six or more drinks on one occasion?: Never Total Score: 0 DEX-7 AMB Questionnaire DEX-7 Date DEX - 7 assessed: 01/27/25 Feeling nervous, anxious, or on edge: 0 = Not at all Not being able to stop or control worryin = Not at all Worrying too much about different things: 0 = Not at all Trouble relaxin = Not at all Being so restless that it is hard to sit still: 0 = Not at all Becoming easily annoyed or irritable: 0 = Not at all Feeling afraid as if something awful might happen: 0 = Not at all Total DEX-7 score (0-4 normal; 5-9 mild; 10-14 moderate; 15-21 severe): 0 Source: Developed by Shoshana Green B.W. Nikita, Kj Pierre and colleagues, with an educational king from [employer]. Physical exam (Primary Care) Vital Signs: Last Vital Signs Temp 97.8 F 01/27/25 15:07 Pulse 84 01/27/25 15:07 Resp 14 01/27/25 15:07 BP 130/80 01/27/25 15:07 Pulse Ox 97 01/27/25 15:07 Oxygen Delivery Method Room Air 01/27/25 15:07 BMI result Body Mass Index 33.1 Tobacco/Smoking Status: Tobacco use Status Tobacco use date assessed 01/27/25 01/27/25 15:16 Patient Tobacco Use Status Former Tobacco user 01/27/25 15:16 PHQ-9: PHQ-9 Score PHQ-9: Total score 0 01/27/25 15:16 Thrive Assessment: Date of Thrive Assessment Date Thrive assessed 01/27/25 01/27/25 15:16 Coding Level of Care Code New Pt Level 4 (00532) Complex EM visit Add On G2211 Diagnoses Uncontrolled diabetes mellitus with hyperglycemia E11.65 Assessment & Plan Assessment & Plan (1) Uncontrolled diabetes mellitus with hyperglycemia: Code(s): E11.65 - Type 2 diabetes mellitus with hyperglycemia Category: Medical Plan: Patient was advised to be more compliant with her medications. Endocrinology appt scheduled. Patient is travelling for 2 months. Advised her to follow up on her return. Plan History of Present Illness The patient is a 59-year-old female presenting with elevated blood glucose and a recent dry cough. She has a history of Type 2 diabetes mellitus, currently controlled with metformin, glipizide, and long-acting insulin (Basaglar). However, her HbA1c has reached 9.9%, indicating poor glycemic control. The patient's adherence to insulin therapy is inconsistent, primarily due to hypog lycemic episodes, where her self-monitored glucose levels occasionally drop to 60 mg/dL, leading her to skip doses. Her blood glucose readings, as self- reported, demonstrate variability, with levels as high as 211 mg/dL after meals. The patient is also concerned about her thyroid health, hinting at hypothyroidism, although no recent thyroid function tests were confirmed in the session. Additionally, she reports a dry cough that has persisted over several days. She has expressed willingness to see a specialist for her diabetes management possibly after returning from an upcoming trip, given her planned visit to [place]. Social History - Current nutritional intake includes a salad for lunch, with no other specific dietary details provided. - No mention of alcohol, tobacco, or recreational drug use. - No information on employment, education, or family status discussed. Review of Systems - Endocrine: Reports variability in blood glucose levels with both hyperglycemia and hypoglycemia. - Respiratory: Reports dry cough for the past few days. Physical Exam General: Appearance normal, both eyes and all related structures Nutritional Appearance: Well nourished Orientation/consciousness: Patient oriented x3 Limitations: No limitations Head: Normal to inspection Neck: Normal visual inspection Chest: Normal palpation of entire chest wall Respiratory: Dry cough noted for the past few days Neurology: Patient oriented x3 Results - Labs: Reports HbA1c of 9.9%. Plan For the management of Type 2 diabetes mellitus, the patient was advised on maintaining consistent use of Basaglar with her current regimen of metformin, glipizide, and Trulicity, and was informed of an impending referral to an sugar chipper machine operator for detailed glycemic management, especially after her return from [place]. Hypothyroidism concerns will prompt a review of past lab results and the necessity for subsequent thyroid function tests. The patient's recent dry cough, presumed non-severe, will be descriptively monitored, awaiting further evaluation if symptoms persist or worsen after her travel. Patient was informed and verbally consented to the use of an ambient scribe for clinic note documentation during this visit. Discussion Notes Our discussions with the patient focused on the management of her diabetes to lower the HbA1c to target levels through medication adherence and possible adjus tments post-specialist consultation. The risks of intermittent basal insulin administration leading to variability in glucose levels were emphasized, with the importance of consistent monitoring highlighted. The patient consented to the implementation of specialist advice and potential further testing of thyroid function, acknowledging how travel plans might impact scheduling. Patient Instructions - Continue current diabetes medication regimen and insulin as prescribed. - Aim for consistent self-monitoring of blood glucose at least daily. - Contact the office if hypoglycemia symptoms persist or worsen. - Monitor for changes in cough and seek assistance if symptoms escalate. - Await notification for appointment scheduling with an sugar chipper machine operator post- travel. - Follow through with recommended thyroid function testing after allergies. Orders: Referrals Endocrinology Referral E11.65 - Type 2 diabetes mellitus with hyperglycemia Medications: New levothyroxine 137 mcg PO DAILY 60 tabs 0RF
== END 2025-01-27 15:54 | disposition home or self-care (01) ==
LOC: HO.HMCHD 15:06
PROVIDERS: PCP Internal Medicine; Visit Provider Internal Medicine
DX: E11.65 Type 2 diabetes mellitus with hyperglycemia (principal)

== ENCOUNTER → 2025-01-27 15:06 | Outpatient (BNVA) | payer MEDICARE, MEDICAID, SELFPAY | PROVIDERS: PCP Internal Medicine; Visit Provider Internal Medicine | DX: E11.65 Type 2 diabetes mellitus with hyperglycemia (principal) | CPT/HCPCS: 99202 ==

== ENCOUNTER 2025-04-23 09:54 | Outpatient (AMB) | payer MEDICARE, MEDICAID, SELFPAY ==
--- NOTE | 2025-04-23 10:00 | MHC.PC.OV ---
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 Type 2 diabetes-last hemoglobin A1c 9.9%. Reports she was referred to Endocrinology but has not yet been able to make an appointment due to prior commitments. Fasting glucose yesterday was 144 but is typically around 200. Currently on metformin 500 mg daily, glipizide 10 mg twice daily, Trulicity. She also uses Basaglar 75 units nightly. Hypothyroidism-on levothyroxine. Reports she is taking the medication in the morning with all of her other medications. Rheumatoid arthritis- following with Rheumatology. Symptoms controlled with methotrexate and abatacept infusion Concerns: Reports she has a sore throat and feels her neck is swollen ongoing for 2 days. Reports symptoms are slightly improved compared to yesterday. Denies any fevers, chills, sore throat, cough. Health maintenance: Last mammogram 05/2024, negative for malignancy. Upcoming appointment 05/18 Last Pap smear 2020, next due 2025. 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 No sore throat, nasal congestion, rhinorrhea, sinus pain, ear pain. See HPI Cardiovascular: No chest pain, palpitations, or leg edema Respiratory: No shortness of breath, wheezing, cough GI: No abdominal pain, nausea, vomiting, diarrhea, constipation, melena, hematochezia : No dysuria, hematuria, increased urinary frequency, decreased urinary output MSK: No myalgia, back pain Neuro: No headaches, weakness, paresthesias Skin: No rashes or lesions EXAM: Constitutional - Awake and Alert, No apparent distress Eyes - PERRL Mouth-mucosa moist. Posterior oropharynx erythematous but without any tonsillar edema or exudates. Airway patent. Posterior cobblestoning noted Cardiovascular - S1S2, RRR, No edema Respiratory - Normal lung expansion, Normal respiratory effort, No respiratory distress, CTA bilaterally Extremities - no calf tenderness bilaterally, no swelling Skin - Warm/Dry Neurological - Alert & oriented x3 Psychological - Appropriate affect [facility] Medical History (Updated 04/23/25 @ 10:31 by BARBARA Rivera) Well woman exam Rheumatoid arthritis Cholecystectomy planned Hypertension Diabetes Surgical History History of cholecystectomy Tubal ligation status H/O hysterectomy for benign disease Family History Maternal Aunt Uterine cancer Mother Diabetes Father Liver cancer Social History (Updated 01/27/25 @ 15:16 by JOHN Barrera) Housing: Apartment Alcohol intake: never Patient Tobacco Use Status: Former Tobacco user service: No Current occupational status: retired and disabled Cognitive needs: No Hearing needs: No Vision needs: Yes (rx glasses) Female Reproductive History Menstrual Age of Menarche: 11 Questionnaire Thrive Questionnaire Date Thrive assessed: 01/27/25 DEX-7 AMB Questionnaire DEX-7 Date DEX - 7 assessed: 01/27/25 Source: Developed by Drs. Shaji Renner, Shoshana Shelton, Kj Pierre and colleagues, with an educational king from [employer]. Physical exam (Primary Care) Vital Signs: Last Vital Signs Temp 97.6 F 04/23/25 10:05 Pulse 79 04/23/25 10:05 Resp 16 04/23/25 10:05 BP 132/54 L 04/23/25 10:05 Pulse Ox 99 04/23/25 10:05 Oxygen Delivery Method Room Air 04/23/25 10:05 BMI result Body Mass Index 33.5 Tobacco/Smoking Status: Tobacco use Status Tobacco use date assessed 01/27/25 04/23/25 10:02 Patient Tobacco Use Status Former Tobacco user 04/23/25 10:02 Thrive Assessment: Date of Thrive Assessment Date Thrive assessed 01/27/25 04/23/25 10:02 Coding Level of Care Code Est Pt Level 4 (91923) Complex EM visit Add On G2211 Diagnoses Diabetes E11.9 Rheumatoid arthritis M06.9 Laryngitis J04.0 Hypothyroid E03.9 Assessment & Plan Assessment & Plan (1) Diabetes: Code(s): E11.9 - Type 2 diabetes mellitus without complications Category: Medical Plan: Uncontrolled, last hemoglobin A1c 9.9%. Updated hemoglobin A1c ordered for now, continue Trulicity, Basaglar, glipizide, metformin. She has referral to endocrinology and is advised to schedule appointment. Diabetic diet recommended. (2) Rheumatoid arthritis: Code(s): M06.9 - Rheumatoid arthritis, unspecified Category: Medical Plan: Stable. Continue following with Rheumatology. Continue methotrexate and abatacept as advised by room (3) Laryngitis: Code(s): J04.0 - Acute laryngitis Category: Medical Plan: Will check for strep pyogenes. However discussed that laryngitis is typically viral in nature and supplementing. Recommend warm saltwater gargles and vocal rest. Can also use nasal sprays to help manage any postnasal drip that may be contributing to symptoms. (4) Hypothyroid: Code(s): E03.9 - Hypothyroidism, unspecified Category: Medical Plan: Educated on and to take medication. TSH with reflex free T4 ordered. Advised to have labs performed in several days rather than this morning. Continue levothyroxine, dose to be adjusted as needed pending results. Follow up with Endocrinology Plan Follow-up in 4 months. Labs to be completed as ordered. Continue medications. Follow-up with endocrinology. Continue following with Rheumatology Orders: Orders Strep A Nucleic Acid Today J02.9 - Acute pharyngitis, unspecified
[2025-04-23 10:05] VITALS: BP 132/54; PULSE 79; RESP 16; TEMP 36.4; O2SAT 99; BMI 33.5
== END 2025-04-23 10:30 | disposition home or self-care (01) ==
LOC: HO.HMCHD 09:55
PROVIDERS: PCP Internal Medicine; Visit Provider Physician Assistant
DX: E11.9 Type 2 diabetes mellitus without complications (principal); M06.9 Rheumatoid arthritis, unspecified; J04.0 Acute laryngitis; E03.9 Hypothyroidism, unspecified

== ENCOUNTER → 2025-04-23 09:54 | Outpatient (BNVA) | payer MEDICARE, MEDICAID, SELFPAY | PROVIDERS: PCP Internal Medicine; Visit Provider Physician Assistant | DX: E11.9 Type 2 diabetes mellitus without complications (principal); M06.9 Rheumatoid arthritis, unspecified; J04.0 Acute laryngitis; E03.9 Hypothyroidism, unspecified; Z79.631 Long term (current) use of antimetabolite agent; Z79.84 Long term (current) use of oral hypoglycemic drugs; Z79.85 Long-term (current) use of injectable non-insulin antidiabetic drugs; Z79.899 Other long term (current) drug therapy | CPT/HCPCS: 99212 ==

== ENCOUNTER 2025-05-11 09:42 | Outpatient (AMB) | payer MEDICARE, MEDICAID, SELFPAY ==
--- NOTE | 2025-05-11 09:49 | A.OFFVIS_ITS ---
Vital Signs 05/11/25 09:56 Height 4 ft 11 in Weight 167 lb 8.821 oz BMI 33.8 BP 148/74 H Blood Pressure Location Rt brachial Position Sitting Pulse 95 Pulse Source Pulse Oximeter Pulse Oximetry (%) 96 Oxygen Delivery Method Room Air Intake Visit Reasons: T2DM Intake Note: New patient internally referred by PCP for T2DM. Last Diabetic Eye exam: 02/03/25 [facility] Last Podiatry Visit: Patient does not see a Atm Servicer HgA1C: 8.7%, 05/11/2025 Random Glucose: 382 mg/dL, 10:05 AM Customer Operations Manager Required: No Accompanied by: Self / Same As Patient Allergies No Known Allergies Allergy (Mild, Verified 05/11/25 10:02) NOT APPLICABLE Medication List - Last Reconciled 05/11/25 by BARBARA Fink abatacept (with maltose) 250 mg (Orencia (with maltose)) mL IV albuterol sulfate 90 mcg/actuation 2 puffs PO DIRECTED albuterol sulfate 90 mcg/actuation (Ventolin HFA) 2 puffs inhalation Q6H atorvastatin 10 mg PO DAILY blood sugar diagnostic As directed blood-glucose sensor (FreeStyle Richard 3 Plus Sensor device) Apply 1 new sensor every 15 days as directed to monitor blood glucose continuously. blood-glucose,improvement engineer,cont (FreeStyle Richard 3 [place]) Use daily to monitor blood glucose levels continuously. famotidine 40 mg PO QPM folic acid 1 mg PO DAILY glipizide 10 mg PO DAILY glucose (Dex4 Glucose Quick Dissolve) 16 grams (4 x 4 gram) PO Q15M PRN insulin degludec (Tresiba FlexTouch U-200 insulin) 16 units (0.08 mL) subcut BEDTIME levothyroxine 137 mcg PO DAILY metformin ER 1,000 mg (2 x 500 mg) PO DAILY methotrexate sodium 2.5 mg PO DAILY methotrexate sodium 25 mg (10 x 2.5 mg) PO QWEEK oxycodone-acetaminophen 5-325 mg 1 tab PO DAILY PRN pen needle, diabetic As directed tirzepatide (Mounjaro) 2.5 mg (0.5 mL) subcut QWEEK zolpidem 10 mg PO BEDTIME PRN HPI Comments Details: This is a 60-year-old female with a past medical history of hypertension, rheumatoid arthritis, GERD, hypothyroidism and type 2 diabetes presenting for an initial consult for diabetic management. She was diagnosed in her thirties. Her mother has Type II DM, and her brother had prediabetes but this resolved with lifestyle modifications. She does not have a glucometer with her today, but she does have one. Hemoglobin a1c 8.7% today 05/11/2025. This is down from 9.9%. Current medication regimen: Trulicity 0.75, glipizide 10 mg twice a day, metformin 500 mg daily, Basaglar with varying dosages. The patient admits she is only using Basaglar about 3 days per week. It's prescribed as 75 units, but she does not take this much. For example this morning she took 30 units, and yesterday and the day before she did not use any. She also does not take it other consistent time every day. Her blood sugar is elevated at 382. She denies symptoms of hyperglycemia. She had hash browns, toast with butter, orange juice and eggs this morning. She is trying to eat healthier. Diet: Breakfast- 2 pieces of toast with butter, fried eggs, coffee or tea with 1 tsp of sugar Lunch- soup or sandwich, water Dinner- potatoes, meat, vegetable, small portion of rice, pasta Snacks/desserts: sometimes sometimes a bowl of cereal tries to avoid soda Hypoglycemia symptoms: A long time ago she had a low sugar and felt shaky and sweaty. She treated it with orange juice. Hyperglycemia symptoms: Dry mouth Microvascular complications: Denies Macrovascular complications: Denies Hypertension: She does not take medicine for this, but her blood pressure varies based on her pain level. Today she was having a lot of RA pain. Hyperlipidemia: treated with atorvastatin. ROS: Constitutional: No unexplained weight loss, fever, chills, fatigue or night sweats. Eyes: No vision changes, blurry vision, double vision, eye pain, eye redness, eye discharge. Respiratory: No shortness of breath Cardiovascular: No chest pain Gastrointestinal: No anorexia, nausea, vomiting or diarrhea. No abdominal pain Neurologic: No numbness or tingling in the extremities. Endocrine: No cold or heat intolerance. No polyuria or polydipsia. Physical exam: Constitutional: Alert, in no distress. Eyes: Pupils are equal, round and reactive to light. Extraocular muscles intact. Neck: Supple, Full range of motion. No lymphadenopathy. No palpable thyroid masses. Respiratory: Clear to auscultation. Cardiovascular: S1 S2 regular. No murmurs Psychiatric: Normal mood and affect [facility] Medical History Well woman exam Rheumatoid arthritis Cholecystectomy planned Hypertension Diabetes Surgical History History of cholecystectomy Tubal ligation status H/O hysterectomy for benign disease Family History Maternal Aunt Uterine cancer Mother Diabetes Father Liver cancer Social History Housing: Apartment Alcohol intake: never Patient Tobacco Use Status: Former Tobacco user service: No Current occupational status: retired and disabled Cognitive needs: No Hearing needs: No Vision needs: Yes (rx glasses) Female Reproductive History Menstrual Age of Menarche: 11 Physical Exam Vital Signs: Last Vital Signs Pulse 95 05/11/25 09:56 BP 148/74 H 05/11/25 09:56 Pulse Ox 96 05/11/25 09:56 Oxygen Delivery Method Room Air 05/11/25 09:56 BMI result Body Mass Index 33.8 Results AMB Hemoglobin A1c AMB Hemoglobin A1c 8.7 % Last Edit by JOHN Forbes on 05/11/25 10:14 Results Reviewed Results Reviewed: Laboratory Last Values Glucose (Clinic) 382 mg/dL (60-115) H* 05/11/25 10:04 Laboratory Tests 03/19/22 02/22/23 01/01/24 16:10 09:57 14:47 Plt Count Creatinine Estimated GFR AST ALT Triglycerides 130 Cholesterol 106 LDL Cholesterol, Calc 55 HDL Cholesterol 25 Vitamin B12 580 Urine Creatinine 119.39 Urine Microalbumin 11.0 Microalb/Creat Ratio 9.2 11/19/24 09:10 Plt Count 344 Creatinine 0.78 Estimated GFR > 60 AST 31 ALT 24 Triglycerides Cholesterol LDL Cholesterol, Calc HDL Cholesterol Vitamin B12 Urine Creatinine Urine Microalbumin Microalb/Creat Ratio Assessment & Plan Assessment & Plan (1) Uncontrolled diabetes mellitus with hyperglycemia: Code(s): E11.65 - Type 2 diabetes mellitus with hyperglycemia Category: Medical (2) Hypertension: Code(s): I10 - Essential (primary) hypertension Category: Medical Plan: Check renal function and electrolytes. Recommended low-sodium diet. Patient feels high blood pressure today is related to pain. Recheck at next visit. If this persists we will discuss adding Rick or Arb for renal protection. Plan In summary this is a 60-year-old female with type 2 diabetes with no known complications. Target hemoglobin A1c less than 7%. We will try to simplify her medication regimen and aim for consistency taking her medication. Stop Basaglar and start Tresiba. I am starting her at a lower dose of 16 units at bedtime because she is only taking insulin a few times per week right now. Advised patient to increase to 20 units if her fasting sugars are over 140. She has noted some acid reflux on Trulicity, and she has not been able to lose a substantial amount of weight. We will switch her to Mounjaro 2.5 mg weekly. She denies contraindications to GLP 1. Side effects and dose titration reviewed with the patient. Increase metformin to 1000 mg daily. Change to extended release formula. Decrease glipizide to 10 mg in the morning. Our goal will be to taper off of this while adjusting her other medications. Written instructions provided the patient for treatment of hypoglycemia. Glucose tablets sent to the pharmacy. CGM is medically necessary. Prescribed Richard 3 Plus. Refer to community educator for CGM teaching. Lifestyle modifications reviewed with the patient. Refer to dietitian. Follow up in 4 weeks. Orders: Orders Lipid Panel Today BARBARA Fink E03.9 - Hypothyroidism, unspecified, E11.65 - Type 2 diabetes mellitus with hyperglycemia, E78.5 - Hyperlipidemia, unspecified, I10 - Essential (primary) hypertension AMB Hemoglobin A1c Today BARBARA Fink E11.65 - Type 2 diabetes mellitus with hyperglycemia Alanine Aminotransferase Today BRABARA Fink E03.9 - Hypothyroidism, unspecified, E11.65 - Type 2 diabetes mellitus with hyperglycemia, I10 - Essential (primary) hypertension Aspartate Amino Transferase Today BARBARA Fink E03.9 - Hypothyroidism, unspecified, E11.65 - Type 2 diabetes mellitus with hyperglycemia, I10 - Essential (primary) hypertension Creatinine Today BARBARA Fink E03.9 - Hypothyroidism, unspecified, E11.65 - Type 2 diabetes mellitus with hyperglycemia, E11.9 - Type 2 diabetes mellitus without complications, I10 - Essential (primary) hypertension Microalbumin, Random (w Creat) Today BARBARA Fink E03.9 - Hypothyroidism, unspecified, E11.65 - Type 2 diabetes mellitus with hyperglycemia, E11.9 - Type 2 diabetes mellitus without complications, I10 - Essential (primary) hypertension TSH reflex Free T4 Today BARBARA Fink E03.9 - Hypothyroidism, unspecified, E11.65 - Type 2 diabetes mellitus with hyperglycemia, I10 - Essential (primary) hypertension Referrals Diabetes Education Referral BARBARA Fink E11.65 - Type 2 diabetes mellitus with hyperglycemia Machine Repair Person Nutrition Referral BARBARA Fink E11.65 - Type 2 diabetes mellitus with hyperglycemia Medications: New blood-glucose,improvement engineer,cont (FreeStyle Richard 3 [place]) Use daily to monitor blood glucose levels continuously. 1 ea 0RF BARBARA Fink E11.65 - Type 2 diabetes mellitus with hyperglycemia metformin ER 1,000 mg (2 x 500 mg) PO DAILY 180 tabs 1RF BARBARA Fink blood-glucose sensor (FreeStyle Richard 3 Plus Sensor device) Apply 1 new sensor every 15 days as directed to monitor blood glucose continuously. 2 ea 11RF BARBARA Fink E11.65 - Type 2 diabetes mellitus with hyperglycemia insulin degludec (Tresiba FlexTouch U-200 insulin) 30 units (0.15 mL) subcut BEDTIME 9 mL 5RF BARBARA Fink tirzepatide (Mounjaro) for 4 weeks 2.5 mg (0.5 mL) subcut QWEEK 2 mL 1RF BARBARA Fink glucose (Dex4 Glucose Quick Dissolve) until symptoms of low blood sugar are controlled 16 grams (4 x 4 gram) PO Q15M PRN 30 tabs 3RF hypoglycemia BARBARA Fink insulin degludec (Tresiba FlexTouch U-200 insulin) 16 units (0.08 mL) subcut BEDTIME 9 mL 5RF BARBARA Fink Changed From glipizide 10 mg PO BID 180 tabs 1RF To glipizide 10 mg PO DAILY Amado Hall MD Patient Instructions: Stop Basaglar and start Tresiba 16 units at bedtime. If your fasting sugars are over 140, increase Tresiba to 20 units at bedtime. Stop metformin 500 mg daily and start Metformin extended release 1000 mg daily. Stop Trulicty and start Mounjaro 2.5 mg weekly. Start this 1 week after your last of dose Trulicity. Decrease Glipizide to 10 mg in the morning. If you have low blood sugars under 70, stop taking this altogether. We will call you to schedule the appointment with the log loader and with the community educator nurse (I want you to have the CGM before this so she can set it up with you). If you experience low blood sugar (under 70), treat this by eating a chewable fruit candy like skittles or jelly beans (about 8 pieces), 4 ounces (1/2 cup) of fruit juice (not diet), 1 tablespoon of honey or 4 glucose tablets. If your blood sugar is under 55, take double the amount of one of the above. Recheck your blood sugar in 15 minutes. Coding Level of Care Code New Pt Level 5 (12461) Complex EM visit Add On G2211 Diagnoses Uncontrolled diabetes mellitus with hyperglycemia E11.65 Hypertension I10 Time Spent (min) 64 Comment Chart review, direct patient care, completing documentation
[2025-05-11 09:56] VITALS: BP 148/74; PULSE 95; O2SAT 96; BMI 33.8
[2025-05-11 10:08] LABS: Glucose, Whole Blood 382 mg/dL (60-115)
== END 2025-05-11 11:02 | disposition home or self-care (01) ==
LOC: HO.ENCR 09:43
PROVIDERS: PCP Internal Medicine; Visit Provider Physician Assistant Medical
DX: E11.65 Type 2 diabetes mellitus with hyperglycemia (principal); Z79.4 Long term (current) use of insulin; I10 Essential (primary) hypertension

== ENCOUNTER → 2025-05-11 09:42 | Outpatient (BNVA) | payer MEDICARE, MEDICAID, SELFPAY | PROVIDERS: PCP Internal Medicine; Visit Provider Physician Assistant Medical | DX: E11.65 Type 2 diabetes mellitus with hyperglycemia (principal); I10 Essential (primary) hypertension; Z79.85 Long-term (current) use of injectable non-insulin antidiabetic drugs; Z79.84 Long term (current) use of oral hypoglycemic drugs | CPT/HCPCS: 82947; 83036; 99202 ==

== ENCOUNTER 2025-05-18 15:05 | Outpatient (REF) | payer MEDICARE, MEDICAID, SELFPAY | END 2025-05-18 15:06 | disposition home or self-care (01) | LOC: HO.MAMMO 15:05 | PROVIDERS: PCP Internal Medicine; Visit Provider Internal Medicine | DX: Z12.31 Encounter for screening mammogram for malignant neoplasm of breast (principal) | CPT/HCPCS: 77063; 77067 ==

== ENCOUNTER → 2025-05-18 15:30 | Outpatient (BNV) | payer MEDICARE, MEDICAID, SELFPAY | PROVIDERS: PCP Internal Medicine; Visit Provider Internal Medicine | DX: Z12.31 Encounter for screening mammogram for malignant neoplasm of breast (principal) | CPT/HCPCS: 77063; 77067 ==

== ENCOUNTER 2025-06-30 09:13 | Outpatient (REF) | payer MEDICARE, MEDICAID, SELFPAY ==
[2025-06-30 11:42] LABS: Alanine Aminotransferase 17 U/L (0-31); Aspartate Amino Transferase 21 U/L (5-31); Cholesterol 176 mg/dL (<200); Estimated Glomerular Filt Rate > 60; HDL Cholesterol 32 mg/dL (>40); Triglycerides 242 mg/dL (<150)
[2025-06-30 11:46] LABS: Microalbum/Creatinine Ratio Ur 8.0 ug/mg cr (<30)
[2025-06-30 12:48] LABS: Free T4 (Free Thyroxine) 1.22 ng/dL (0.71-1.85)
== END 2025-06-30 09:14 | disposition home or self-care (01) ==
LOC: HO.10HDL 09:13
PROVIDERS: Visit Provider Physician Assistant Medical
DX: E11.65 Type 2 diabetes mellitus with hyperglycemia (principal); I10 Essential (primary) hypertension; E03.9 Hypothyroidism, unspecified; E78.5 Hyperlipidemia, unspecified
CPT/HCPCS: 36415; 80061; 82043; 82565; 82570; 84439; 84443; 84450; 84460; 99211

== ENCOUNTER 2025-06-30 10:51 | Outpatient (AMB) | payer MEDICARE, MEDICAID, SELFPAY ==
--- NOTE | 2025-06-30 11:20 | A.OFFVIS_ITS ---
Intake Intake Visit Reasons: DM Front End Mechanic Required: No Accompanied by: Self / Same As Patient Allergies No Known Allergies Allergy (Mild, Verified 05/11/25 10:02) NOT APPLICABLE HPI Comprehensive Diabetes Asmnt Most Recent Diabetes Results: Hemoglobin A1c 10.7 % 06/10/20 Microalb/Creat Ratio 9.2 ug/mg cr 03/19/22 Cholesterol 106 mg/dL 02/22/23 HDL Cholesterol 25 mg/dL 02/22/23 Triglycerides 130 mg/dL 02/22/23 Creatinine, (0.5-1.4) 0.78 mg/dL 11/19/24 BUN, (9-16) 10 mg/dL 11/19/24 Sodium, (135-145) 137 mmol/L 11/19/24 Potassium, (3.3-5.1) 3.7 mmol/L 11/19/24 Chloride, (96-108) 104 mmol/L 11/19/24 Carbon Dioxide, (22-29) 25 mmol/L 11/19/24 Calcium, (8.4-10.2) 9.0 mg/dL Δ 11/19/24 AST, (5-31) 31 U/L 11/19/24 ALT, (0-31) 24 U/L 11/19/24 Total Protein, (6.5-8.0) 7.1 g/dL 11/19/24 Albumin, (3.5-5.0) 4.1 g/dL 11/19/24 [facility] [place] Medical History Well woman exam Rheumatoid arthritis Cholecystectomy planned Hypertension Diabetes Surgical History History of cholecystectomy Tubal ligation status H/O hysterectomy for benign disease Family History Maternal Aunt Uterine cancer Mother Diabetes Father Liver cancer Social History Housing: Apartment Alcohol intake: never Patient Tobacco Use Status: Former Tobacco user service: No Current occupational status: retired and disabled Cognitive needs: No Hearing needs: No Vision needs: Yes (rx glasses) Female Reproductive History Menstrual Age of Menarche: 11 Assessment & Plan Assessment & Plan (1) Diabetes: Code(s): E11.9 - Type 2 diabetes mellitus without complications Plan: Patient at visit to set up an insert Richard 3+ with reader Instructed Pt on what CGM can and can't do CGM Can: Give Pt minute by minute reading of glucose levels Displays glucose trend arrows that represents the direction glucose levels are fluctuating Give insight on decisions about how to dose insulin CGM cannot: Improve glucose control on its own Completely eliminate the need for all finger sticks Make dosing decision for you CGM is the reading of glucose in the interstitial fluid not actual blood glucose, finger sticks are still necessary when Pt's symptom?s do not match sensor reading and if sensors prompts Pt to do a fingerstick Instructed patient sensors water proof you can shower, or swim do not submerge sensor in water for over 30 minutes Is sensor falls off cannot put back in you need to replace sensor, customer service number given to patient for sensor replacement Sensor placed on the back of left arm Patient left visit with sensor in warmup Reviewed how to interpret trend arrows Discussed lag time between finger stick and sensor data.? Instructed patient the importance of having blood glucometer for backup testing if needed Reviewed delay of CGM from fingersticks Reminded Pt that if symptoms do not match sensor still needs to check fingersticks. Introduction to Nutrition Importance of healthy diet in managing DM How diet effects glucose Carbohydrates: What is a carbohydrate/Which food/food groups are considered carbohydrates Effect of carbohydrates on blood glucose Portion sizes Plate method Meal planning Recommendations: Follow plate method, consistent carbs and read nutritional labels. Educational Materials: The patient was provided with the following written educational materials: Planning Healthy Meals Handout Portions of this note were created using voice recognition software, please excuse any words or phrases that may have been misinterpreted. Patient Instructions: Patient instruction: CGM provides information on blood glucose control throughout the day, including hyperglycemia and hypoglycemia. ? Continue to monitor blood glucose as instructed. Follow nutrition guidelines provided. Report any discomfort promptly to health care provider. ?Stay well-hydrated. You can bathe ,shower, swim and exerce while wearing the glucose sensor. Do not submerge glucose sensor in water for more than 30 minutes. Remove sensor for MRI or CAT scan. Avoid Xray machine in airports - remove sensor or request wand Coding Level of Care Code Est Pt Level 1 (12363) Diagnoses Diabetes E11.9
== END 2025-06-30 11:23 | disposition home or self-care (01) ==
LOC: HO.ENCR 10:51
PROVIDERS: PCP Internal Medicine; Visit Provider Registered Nurse Diabetes Educator
DX: E11.9 Type 2 diabetes mellitus without complications (principal)

== ENCOUNTER 2025-07-16 09:23 | Outpatient (AMB) | payer MEDICARE, MEDICAID, SELFPAY ==
--- NOTE | 2025-07-16 09:26 | MHC.OFFVIS ---
Vital Signs 07/16/25 09:30 07/16/25 10:02 Height 4 ft 11 in Weight 159 lb 2.78 oz BMI 32.1 BP 130/66 Blood Pressure Location Rt brachial Position Sitting Pulse 103 H 96 Pulse Source Pulse Oximeter Palpation Pulse Oximetry (%) 97 Oxygen Delivery Method Room Air Intake Visit Reasons: Type II Diabetes Intake Note: Patient present today to follow up on Type 2 Diabetes Mellitus. 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 Accompanied by: Self / Same As Patient Allergies No Known Allergies Allergy (Mild, Verified 07/16/25 09:31) NOT APPLICABLE Medication List - Last Reconciled 07/16/25 by BARBARA Fink abatacept (with maltose) 250 mg (Orencia (with maltose)) mL IV albuterol sulfate 90 mcg/actuation 2 puffs PO DIRECTED albuterol sulfate 90 mcg/actuation (Ventolin HFA) 2 puffs inhalation Q6H alcohol swabs (Alcohol Prep Pads) 1 pad topical BID atorvastatin 10 mg PO DAILY blood sugar diagnostic As directed blood-glucose sensor (FreeStyle Richard 3 Plus Sensor device) Apply 1 new sensor every 15 days as directed to monitor blood glucose continuously. 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 famotidine 40 mg PO QPM folic acid 1 mg PO DAILY glipizide 5 mg PO DAILY glucose (Dex4 Glucose Quick Dissolve) 16 grams (4 x 4 gram) PO Q15M PRN insulin degludec 26 units (0.13 mL) subcut BEDTIME levothyroxine (Levo-T) 125 mcg PO DAILY metformin ER 1,500 mg (3 x 500 mg) PO DAILY methotrexate sodium 2.5 mg PO DAILY methotrexate sodium 25 mg (10 x 2.5 mg) PO QWEEK oxycodone-acetaminophen 5-325 mg 1 tab PO DAILY PRN tirzepatide (Mounjaro) 5 mg (0.5 mL) subcut QWEEK zolpidem 10 mg PO BEDTIME PRN HPI Comments Details: This is a 60-year-old female with a past medical history of hypertension, rheumatoid arthritis, GERD, hypothyroidism and type 2 diabetes presenting for diabetic management. She was diagnosed in her thirties. Her mother has Type II DM, and her brother had prediabetes but this resolved with lifestyle modifications. I reviewed her CGM. Her blood sugars are high 91% of the time and in target range 9% of the time. There is no hypoglycemia. Hyperglycemia is stable throughout 24 hours. Hemoglobin a1c 8.7% 05/11/2025. Current medication regimen: Mounjaro 2.5 mg weekly glipizide 10 mg once daily day, metformin 500 mg BID, Tresiba 16-20 units nightly. She still has high sugars in the morning even when she takes 20 units of Tresiba insulin at night. She denies side effects on the new medication regimen. She is happy that she has lost weight since starting Mounjaro. Past medication: Alanna She met with the clinical trial educator. She is trying to follow a low-carbohydrate diet. Hypoglycemia symptoms: No interval episodes Hyperglycemia symptoms: Denies symptoms Microvascular complications: None Macrovascular complications: Denies Hyperlipidemia: treated with atorvastatin. Her triglycerides are elevated. Her TSH was low. Her dose of levothyroxine was decreased. She has chronic left knee pain which limits her ability to exercise. She is trying to decide if she wants to move forward with a knee replacement surgery. ROS: Constitutional: No unexplained weight loss, fever, chills, fatigue or night sweats. Eyes: No vision changes, blurry vision, double vision, eye pain, eye redness, eye discharge. Respiratory: No shortness of breath Cardiovascular: No chest pain Gastrointestinal: No anorexia, nausea, vomiting or diarrhea. No abdominal pain Neurologic: No numbness or tingling in the extremities. Endocrine: No cold or heat intolerance. No polyuria or polydipsia. Physical exam: Constitutional: Alert, in no distress. Eyes: Pupils are equal, round and reactive to light. Extraocular muscles intact. Neck: Supple, Full range of motion. No lymphadenopathy. No palpable thyroid masses. Respiratory: Clear to auscultation. Cardiovascular: S1 S2 regular. No murmurs Psychiatric: Normal mood and affect [facility] Medical History (Updated 07/16/25 @ 10:15 by BARBARA Fink) Obesity, class 1 Hypertriglyceridemia Well woman exam Rheumatoid arthritis Cholecystectomy planned Hypertension Diabetes Surgical History History of cholecystectomy Tubal ligation status H/O hysterectomy for benign disease Family History Maternal Aunt Uterine cancer Mother Diabetes Father Liver cancer Social History Housing: Apartment Alcohol intake: never Patient Tobacco Use Status: Former Tobacco user service: No Current occupational status: retired and disabled Cognitive needs: No Hearing needs: No Vision needs: Yes (rx glasses) Female Reproductive History Menstrual Age of Menarche: 11 Physical Exam Vital Signs: Last Vital Signs Pulse 96 07/16/25 10:02 BP 130/66 07/16/25 09:30 Pulse Ox 97 07/16/25 09:30 Oxygen Delivery Method Room Air 07/16/25 09:30 BMI result Body Mass Index 32.1 Office Procedures Glucose Monitoring Details Details: See HPI 80886 - Glucose monitoring, continuous-physician I&R Procedure code (CPT) selection complete Results Reviewed Results Reviewed: Laboratory Last Values Glucose (Clinic) 271 mg/dL (60-115) H 07/16/25 09:36 Laboratory Tests 11/19/24 06/30/25 09:10 09:15 Plt Count 344 Creatinine 0.61 Estimated GFR > 60 AST 21 ALT 17 Triglycerides 242 H Cholesterol 176 LDL Cholesterol, Calc 96 HDL Cholesterol 32 L TSH 0.18 L Free T4 1.22 Urine Creatinine 236.90 Urine Microalbumin 19.0 Microalb/Creat Ratio 8.0 Assessment & Plan Assessment & Plan (1) Uncontrolled diabetes mellitus with hyperglycemia: Code(s): E11.65 - Type 2 diabetes mellitus with hyperglycemia Category: Medical Qualifiers: Diabetes mellitus type: type 2 Qualified Code(s): E11.65 - Type 2 diabetes mellitus with hyperglycemia (2) Hypertriglyceridemia: Code(s): E78.1 - Pure hyperglyceridemia Category: Medical (3) Obesity, class 1: Code(s): E66.811 - Obesity, class 1 Category: Medical Plan In summary this is a 60-year-old female with type 2 diabetes with no known complications. Target hemoglobin A1c less than 7%. Medication regimen: Increase Mounjaro to 5 mg weekly. She just picked up a 1 month supply of 2.5 mg Mounjaro so she will finish that and then start the new dose. Decrease Glipizide to 5 mg daily or 1/2 tablet daily Increase Tresiba to 26 units nightly. Increase Metformin to 2 tablets in the morning and 1 tablet in the evening. If blood sugars are still out of the target range (above 130 in the morning or above 180 after meals) please increase Metformin to 2 tablets twice daily. If you experience low blood sugar, treat this by eating a chewable fruit candy like skittles or jelly beans (about 8 pieces), 4 ounces (1/2 cup) of fruit juice (not diet), 1 tablespoon of honey or 4 glucose tablets. If your blood sugar is under 50, take double the amount of one of the above. Recheck your blood sugar in 15 minutes. Contact the office if you have low blood sugars. The plan will be to stop glipizide. She has glucose tablets. She will continue atorvastatin for hyperlipidemia. She will continue a low carbohydrate low sugar diet. She does not want to adjust cholesterol medications for triglycerides at this time. We will re-evaluate this in 3 months. Follow up in 8 weeks. Orders: Orders AMB Glucose Monitoring Today E11.9 - Type 2 diabetes mellitus without complications Medications: New tirzepatide (Mounjaro) 5 mg (0.5 mL) subcut QWEEK 2 mL 0RF Changed From insulin degludec 16 units (0.08 mL) subcut BEDTIME 9 mL 5RF To insulin degludec 26 units (0.13 mL) subcut BEDTIME 9 mL 5RF From metformin ER 1,000 mg (2 x 500 mg) PO DAILY 180 tabs 1RF To metformin ER 1,500 mg (3 x 500 mg) PO DAILY 180 tabs 1RF Discontinued tirzepatide (Mounjaro) for 4 weeks Discontinued Reason: Doctor's Order 2.5 mg (0.5 mL) subcut QWEEK 2 mL 1RF Patient Instructions: Medication regimen: Increase Mounjaro to 5 mg weekly Decrease Glipizide to 5 mg daily or 1/2 tablet daily Increase Tresiba to 26 units nightly. Increase Metformin to 2 tablets in the morning and 1 tablet in the evening. If your blood sugars are still out of the target range (above 130 in the morning or above 180 after meals) please increase Metformin to 2 tablets twice daily. If you experience low blood sugar, treat this by eating a chewable fruit candy like skittles or jelly beans (about 8 pieces), 4 ounces (1/2 cup) of fruit juice (not diet), 1 tablespoon of honey or 4 glucose tablets. If your blood sugar is under 50, take double the amount of one of the above. Recheck your blood sugar in 15 minutes. Coding Level of Care Code Est Pt Level 4 (89236) Diagnoses Uncontrolled type 2 diabetes mellitus with hyperglycemia E11.65 Diabetes mellitus type: type 2 Hypertriglyceridemia E78.1 Obesity, class 1 E66.811 CPT Codes Details - CPT: 41277 - Glucose monitoring, continuous-physician I&R ([id number])
[2025-07-16 09:30] VITALS: BP 130/66; PULSE 103; O2SAT 97; BMI 32.1
[2025-07-16 09:40] LABS: Glucose, Whole Blood 271 mg/dL (60-115)
[2025-07-16 10:02] VITALS: PULSE 96
== END 2025-07-16 10:07 | disposition home or self-care (01) ==
LOC: HO.ENCR 09:24
PROVIDERS: PCP Internal Medicine; Visit Provider Physician Assistant Medical
DX: E11.65 Type 2 diabetes mellitus with hyperglycemia (principal); E78.1 Pure hyperglyceridemia; E66.811 Obesity, class 1

== ENCOUNTER → 2025-07-16 09:23 | Outpatient (BNVA) | payer MEDICARE, MEDICAID, SELFPAY | PROVIDERS: PCP Internal Medicine; Visit Provider Physician Assistant Medical | DX: E11.65 Type 2 diabetes mellitus with hyperglycemia (principal); E78.1 Pure hyperglyceridemia; E66.811 Obesity, class 1; Z79.4 Long term (current) use of insulin | CPT/HCPCS: 82947; 99212 ==

== ENCOUNTER 2025-08-06 10:51 | Day surgery (SDC) | payer MEDICARE, MEDICAID, SELFPAY ==
--- NOTE | 2025-08-04 12:14 | HO.ANESPROP2 ---
Documented by User: Ashlie Escoto NP 08/04/25 12:16 HPI - Anesthesia Eval Consult details Narrative: 60yo F for Colonoscopy Methotrexate for RA Anesthesia Pre-Procedure Meds Is the patient on any of the following meds?: GLP1/DPP4 PMFSH Active Problems Active Problems: All Active Problems Obesity, class 1 (Acute) Hypertriglyceridemia (Acute) Laryngitis (Acute) Rheumatoid arthritis (Acute) Diabetes (Acute) Hypertension (Acute) Uncontrolled diabetes mellitus with hyperglycemia (Acute) Well woman exam (Acute) GERD (gastroesophageal reflux disease) (Acute) Hypothyroid (Acute) Pre-op examination (Acute) Female pelvic pain (Acute) Past Medical History Medical History (Updated 07/16/25 @ 10:15 by BARBARA Fink) Obesity, class 1 Hypertriglyceridemia Well woman exam Rheumatoid arthritis Cholecystectomy planned Hypertension Diabetes Family History Family History Maternal Aunt Uterine cancer Mother Diabetes Father Liver cancer Surgical History Surgical History (Updated 08/06/25 @ 11:33 by Marie Trevino RN) H/O colonoscopy History of cholecystectomy Tubal ligation status H/O hysterectomy for benign disease Social History Social History Housing: Apartment Alcohol intake: never Patient Tobacco Use Status: Former Tobacco user Use of substances other than those prescribed or required for medical reasons: No Are you DNR?: No Advance Directives: No Advance Directives Information Provided: Yes Patient : No : No Poor oral hygiene: No service: No Current occupational status: retired and disabled Cognitive needs: No Hearing needs: No Vision needs: Yes (rx glasses) Meds Allergies Allergy/AdvReac Type Severity Reaction Status Date / Time No Known Allergies Allergy Mild NOT Verified 07/16/25 09:31 APPLICABLE Home Medications ?Medication ?Instructions ?Recorded ?Confirmed ?Last Taken ?Type albuterol sulfate 90 mcg/actuation 2 puff PO DIRECTED 04/17/21 07/16/25 Unknown History aerosol inhaler blood sugar diagnostic #10 ea 04/17/21 07/16/25 Unknown History folic acid 1 mg tablet 1 mg PO DAILY 04/17/21 07/16/25 Unknown History abatacept (with maltose) 250 mg ml IV 08/14/23 07/16/2507/30/25 History intravenous solution (Orencia (with maltose)) glipizide 10 mg tablet 5 mg PO DAILY 07/16/25 07/16/25 Unknown History Assessment and Plan Assessment Anesthesia Assessment: Chart Reviewed Documented by User: Lisbeth Man MD 08/06/25 12:14 [facility] Past Medical History Medical History (Updated 07/16/25 @ 10:15 by BARBARA Fink) Obesity, class 1 Hypertriglyceridemia Well woman exam Rheumatoid arthritis Cholecystectomy planned Hypertension Diabetes Family History Family History Maternal Aunt Uterine cancer Mother Diabetes Father Liver cancer Family history of problems with anesthesia: No Surgical History Surgical History (Updated 08/06/25 @ 11:33 by Marie Trevino RN) H/O colonoscopy History of cholecystectomy Tubal ligation status H/O hysterectomy for benign disease History of Problems with Anesthesia: No Social History Social History Housing: Apartment Alcohol intake: never Patient Tobacco Use Status: Former Tobacco user Use of substances other than those prescribed or required for medical reasons: No Are you DNR?: No Advance Directives: No Advance Directives Information Provided: Yes Patient : No : No Poor oral hygiene: No service: No Current occupational status: retired and disabled Cognitive needs: No Hearing needs: No Vision needs: Yes (rx glasses) Meds Allergies Allergy/AdvReac Type Severity Reaction Status Date / Time No Known Allergies Allergy Mild NOT Verified 07/16/25 09:31 APPLICABLE Home Medications ?Medication ?Instructions ?Recorded ?Confirmed ?Last Taken ?Type albuterol sulfate 90 mcg/actuation 2 puff PO DIRECTED 04/17/21 07/16/25 Unknown History aerosol inhaler blood sugar diagnostic #10 ea 04/17/21 07/16/25 Unknown History folic acid 1 mg tablet 1 mg PO DAILY 04/17/21 07/16/25 Unknown History abatacept (with maltose) 250 mg ml IV 08/14/23 07/16/25 07/30/25 History intravenous solution (Orencia (with maltose)) glipizide 10 mg tablet 5 mg PO DAILY 07/16/25 07/16/25 Unknown History Exam Airway Mallampati Class: II TM Dist: >3cm Neck ROM: Full Heart: rrr Lungs: cta Assessment and Plan Assessment Anesthesia Assessment: Anesthesia Plan Discussed Final Anesthetic Review Family History of Problems with Anesthesia: No History of Problems with Anesthesia: No NPO: Yes ASA Class: III Final Preanesthetic Review: No Changes in Pt Med Stat, Meds/Allgs Chart Reviewed and Consent Obtained/Reviewed Patient Risk: Low Procedure Risk: Low Anesthetic Plan Anesthetic Plan: MAC: Disposition: Standard PACU
[2025-08-04 13:27] VITALS: BMI 34.7
--- NOTE | 2025-08-06 11:21 | MHC.SHP ---
Pre-Procedural Eval Section A - 24 Hr Update-Section A only Date of Service: 08/06/25 Section B - Complete if H&P > 30 days Chief Complaint: screening Relevant Family History (Specify if Yes): No Relevant Social History: None Present Medications: see Short Stay Collaborative assessment Medical History: Significant History (Rheumatoid arthritis Hypertension Diabetes) History of Previous Operations: Relevant previous surgery/procedure and date(s) (History of cholecystectomy Tubal ligation status H/O hysterectomy for benign disease) Allergies: Allergies Allergy/AdvReac Type Severity Reaction Status Date / Time No Known Allergies Allergy Mild NOT Verified 07/16/25 09:31 APPLICABLE Review of Systems Sugical H&P ROS: Negative: Constitution, Cardiovascular, Respiratory and Gastrointestinal Exam Surgical H&P Exam: Normal: Heart, Normal: Lungs, Normal: Extremities and Normal: Abdomen Plan Diagnosis/Plan: Unchanged I have reviewed the history and physical and performed a pertinent physical examination on my patient. No changes have occurred unless specified. Time Spent With Patient Time: Total time managing care of this patient today ____ minutes.
[2025-08-06 11:38] VITALS: BMI 31.3
[2025-08-06 11:39] VITALS: BP 150/70; RESP 16; TEMP 36.9; O2SAT 97
[2025-08-06 11:52] LABS: Glucose, Whole Blood 241 mg/dL (60-115)
--- NOTE | 2025-08-06 13:55 | P.OPN-COLO_ITS ---
Colonoscopy Operative Note Operative Note Date of Service: 08/06/25 Narrative: COLONOSCOPY TILL CECUM WITH SNARE POLYPECTOMY, SUBMUCOSAL INJECTION AND HEMOCLIP PLACEMENT Pre-op diagnosis: Colon cancer screening, . Post-op diagnosis:? Colon polyp, Diverticulosis, hemorrhoids Endoscopist:? Stefany Constantino MD Anesthesia:?MAC Consent: Indications for the procedure and potential complications of bleeding, perforation, reaction to medications and missed diagnosis were discussed with the patient and informed consent was obtained. Instrument: Olympus PCF H 190 L variable stiffness pediatric colonoscope Monitoring: Vital signs and clinical assessment, intermittent blood pressure monitoring, continuous EKG monitoring, Pulse oximetry and Carbon Dioxide monitoring were done throughout the procedure. Please see anesthesia flowsheet. Colon withdrawl time was 20 minutes. Procedure: The patient was placed in the left lateral decubitis position and pre-procedure medications were administered. After a digital rectal examination of the ano-rectum, the video colonoscope was inserted into the rectum and advanced through the colon to the cecum. The colonoscope was slowly withdrawn in a retrograde panoramic fashion and the colon mucosa was carefully examined including a retroflexed view of the rectum. Findings and interventions are described below. Procedure Difficulty: There was narrowing of the sigmoid colon due to severe diverticulosis which was navigated with some difficulty Findings: Terminal Ileum: Not evaluated Cecum: Normal Ascending Colon: A 2 cms sessile polyp in the mid AC at 65 cms. Polyp was raised with 5 cc of [place] and removed with a stiff hot snare. Polypectomy site was closed with 2 hemoclips and marked with Deneen ink. Moderate diverticulosis scattered throughout entire colon. Transverse Colon: Moderate diverticulosis scattered throughout entire colon. Descending Colon: Moderate diverticulosis scattered throughout entire colon. Sigmoid Colon: Severe diverticulosis with luminal narrowing Rectum: Normal Ano-rectum: Normal Colon preparation: Good after copious irrigation. [place] Bowel Preparation Scale Right colon; 2 Transverse colon: 2 Left colon; 2 (0 = Unprepared colon segment with mucosa not seen due to solid stool that cannot be cleared. 1 = Portion of mucosa of the colon segment seen, but other areas of the colon segment not well seen due to staining, residual stool and/or opaque liquid. 2 = Minor amount of residual staining, small fragments of stool and/or opaque liquid, but mucosa of colon segment seen well. 3 = Entire mucosa of colon segment seen well with no residual staining, small fragments of stool or opaque liquid) Impression and Post Procedure Diagnosis: Colonoscopy Findings: One medium sized polyps was removed Moderate to severe diverticulosis seen in the entire colon Plan: Pt has a FU appointment on 08/25/25 with Anabel Che NP. Repeat Colonoscopy in 6 to 12 months if polyps is adenomatous check polypectomy site in the ascending colon. Above findings were reviewed with the patient and relevant handouts were given and the discharge area. BIOPSIES SHOWED: Colon, ascending at 65 cm, polyp: Tubular adenoma with serrated features; negative for high-grade dysplasia and carcinoma. Comment: Adenomatous crypts with cautery artifact are present at the base Letter sent to the patient with biopsy results Patient was placed on the colonoscopy recall list for repeat colonoscopy in 6 months.
[2025-08-06 14:02] VITALS: BP 102/54; PULSE 79; RESP 16; TEMP 36.3; O2SAT 95
[2025-08-06 14:17] VITALS: BP 147/79; PULSE 82; RESP 16; O2SAT 95
[2025-08-06 14:32] VITALS: BP 153/70; PULSE 81; RESP 16; TEMP 36.3; O2SAT 97
== END 2025-08-06 15:34 | disposition home or self-care (01) ==
PROVIDERS: PCP Internal Medicine; Visit Provider Internal Medicine Gastroenterology
PROC: 0DJD8ZZ Inspection of Lower Intestinal Tract, Via Natural or Artificial Opening Endoscopic (ICD-10-PCS; CPT 45378; principal; 2025-08-06 13:00)
DX: Z12.11 Encounter for screening for malignant neoplasm of colon (principal); D12.2 Benign neoplasm of ascending colon; K57.30 Diverticulosis of large intestine without perforation or abscess without bleeding; K64.8 Other hemorrhoids; K59.04 Chronic idiopathic constipation; K21.9 Gastro-esophageal reflux disease without esophagitis; I10 Essential (primary) hypertension; E11.9 Type 2 diabetes mellitus without complications; M06.9 Rheumatoid arthritis, unspecified; E03.9 Hypothyroidism, unspecified; G47.00 Insomnia, unspecified; E66.811 Obesity, class 1; Z68.34 Body mass index [BMI] 34.0-34.9, adult; Z79.84 Long term (current) use of oral hypoglycemic drugs; Z79.899 Other long term (current) drug therapy; Z90.49 Acquired absence of other specified parts of digestive tract; Z90.710 Acquired absence of both cervix and uterus; Z98.890 Other specified postprocedural states
CPT/HCPCS: 45385; 45381; 82947; 88305; J2003; J2405; J2704

== ENCOUNTER → 2025-08-06 10:51 | Outpatient (BNV) | payer MEDICARE, MEDICAID, SELFPAY | PROVIDERS: PCP Internal Medicine; Visit Provider Internal Medicine Gastroenterology | DX: Z12.11 Encounter for screening for malignant neoplasm of colon (principal); D12.2 Benign neoplasm of ascending colon; K57.90 Diverticulosis of intestine, part unspecified, without perforation or abscess without bleeding; K64.8 Other hemorrhoids | CPT/HCPCS: 45381; 45385 ==

== ENCOUNTER 2025-09-28 08:43 | Outpatient (AMB) | payer MEDICARE, MEDICAID, SELFPAY ==
--- NOTE | 2025-09-28 08:45 | MHC.OFFVIS ---
Vital Signs 09/28/25 08:47 Height 4 ft 11 in Weight 150 lb 9.211 oz BMI 30.4 BP 140/74 H Blood Pressure Location Rt brachial Position Sitting Pulse 92 Pulse Source Pulse Oximeter Pulse Oximetry (%) 99 Oxygen Delivery Method Room Air Intake Visit Reasons: T2DM Intake Note: Patient present today to follow up on Type 2 Diabetes Mellitus. 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 blood-glucose,plane captain,cont (FreeStyle Richard 3 [place]) Use daily to monitor blood glucose levels continuously. famotidine 40 mg PO QPM 30 days folic acid 1 mg PO DAILY glucose (Dex4 Glucose Quick Dissolve) 16 grams (4 x 4 gram) PO Q15M PRN insulin degludec 22 units subcut BEDTIME levothyroxine (Levo-T) 125 mcg PO DAILY metformin ER 1,000 mg (2 x 500 mg) PO BID 90 days methotrexate sodium 2.5 mg PO DAILY methotrexate sodium 25 mg (10 x 2.5 mg) PO QWEEK oxycodone-acetaminophen 5-325 mg 1 tab PO DAILY PRN tirzepatide (Mounjaro) 7.5 mg (0.5 mL) subcut QWEEK zolpidem 10 mg PO BEDTIME HPI Comments Details: This is a 60-year-old female with a past medical history of hypertension, rheumatoid arthritis, GERD, hypothyroidism and type 2 diabetes presenting for diabetic management. She was diagnosed in her thirties. Her mother has Type II DM, and her brother had prediabetes but this resolved with lifestyle modifications. Reviewed CGM report CGM active 35% G AZ 7.4% Glucose variability 21.9% Very high 1% High 35% Target range 63% 1% hypoglycemia. My interpretation is she experiences hyperglycemia in the morning and mid day predominantly. She also has some hyperglycemia nocturnally. Hemoglobin a1c 8.7%. Current medication regimen: Mounjaro 5 mg weekly, glipizide 5 mg daily, metformin 1500 mg daily, Tresiba 26 units nightly. She denies side effects on the new medication regimen. She is happy that she has lost weight since starting Mounjaro. Past medication: Basaglar. Trulicity was ineffective. She met with the development educator. She is trying to follow a low-carbohydrate diet. Hypoglycemia symptoms: No interval episodes Hyperglycemia symptoms: Denies symptoms Microvascular complications: None Macrovascular complications: Denies Hyperlipidemia: treated with atorvastatin. She is due for labs. Her TSH was low. Her dose of levothyroxine was decreased. Her blood pressure is elevated today. She attributes this to left knee pain. She is not on antihypertensives. She has chronic left knee pain which limits her ability to exercise. She is trying to decide if she wants to move forward with a knee replacement surgery. ROS: Constitutional: No unexplained weight loss, fever, chills, fatigue or night sweats. Eyes: No vision changes, blurry vision, double vision, eye pain, eye redness, eye discharge. Respiratory: No shortness of breath Cardiovascular: No chest pain Gastrointestinal: No anorexia, nausea, vomiting or diarrhea. No abdominal pain Neurologic: No numbness or tingling in the extremities. Endocrine: No cold or heat intolerance. No polyuria or polydipsia. Physical exam: Constitutional: Alert, in no distress. Eyes: Pupils are equal, round and reactive to light. Extraocular muscles intact. Neck: Supple, Full range of motion. No lymphadenopathy. No palpable thyroid masses. Respiratory: Clear to auscultation. Cardiovascular: S1 S2 regular. No murmurs Psychiatric: Normal mood and affect Feet: Declined exam. [facility] Medical History Obesity, class 1 Hypertriglyceridemia Well woman exam Rheumatoid arthritis Cholecystectomy planned Hypertension Diabetes Surgical History H/O colonoscopy (08/06/25) History of cholecystectomy Tubal ligation status H/O hysterectomy for benign disease Family History Maternal Aunt Uterine cancer Mother Diabetes Father Liver cancer Social History Housing: Apartment Alcohol intake: never Patient Tobacco Use Status: Former Tobacco user service: No Current occupational status: retired and disabled Cognitive needs: No Hearing needs: No Vision needs: Yes (rx glasses) Female Reproductive History Menstrual Age of Menarche: 11 Physical Exam Vital Signs: Last Vital Signs Pulse 92 09/28/25 08:47 BP 140/74 H 09/28/25 08:47 Pulse Ox 99 09/28/25 08:47 Oxygen Delivery Method Room Air 09/28/25 08:47 BMI result Body Mass Index 30.4 Office Procedures Glucose Monitoring Details Details: See [facility] [address] - Glucose monitoring, continuous-physician I&R Procedure code (CPT) selection complete Results AMB Hemoglobin A1c AMB Hemoglobin A1c 8.7 % Last Edit by JOHN Mehta on 09/28/25 09:03 Results Reviewed Results Reviewed: Laboratory Last Values Glucose (Clinic) 200 mg/dL (60-115) H 09/28/25 08:53 Hgb A1c (Clinic) 8.7 % (4.0-6.0) H 09/28/25 08:56 Laboratory Tests 11/19/24 06/30/25 09:10 09:15 Plt Count 344 Creatinine 0.61 Estimated GFR > 60 AST 21 ALT 17 Triglycerides 242 H Cholesterol 176 LDL Cholesterol, Calc 96 HDL Cholesterol 32 L TSH 0.18 L Free T4 1.22 Urine Creatinine 236.90 Urine Microalbumin 19.0 Microalb/Creat Ratio 8.0 Assessment & Plan Assessment & Plan (1) Uncontrolled diabetes mellitus with hyperglycemia: Code(s): E11.65 - Type 2 diabetes mellitus with hyperglycemia Category: Medical Qualifiers: Diabetes mellitus type: type 2 Qualified Code(s): E11.65 - Type 2 diabetes mellitus with hyperglycemia (2) Hypertriglyceridemia: Code(s): E78.1 - Pure hyperglyceridemia Category: Medical (3) Obesity, class 1: Code(s): E66.811 - Obesity, class 1 Category: Medical (4) Hypothyroid: Code(s): E03.9 - Hypothyroidism, unspecified Category: Medical Qualifiers: Hypothyroidism type: unspecified Qualified Code(s): E03.9 - Hypothyroidism, unspecified Plan In summary this is a 60-year-old female with type 2 diabetes with no known complications. Target hemoglobin A1c less than 7%. Medication regimen: Increase Mounjaro to 7.5 mg weekly. She has 2 doses left of 5 mg to finish. When you increase decrease the Tresiba to 22 units nightly. Stop glipizide. Increase metformin to 2 tablets twice daily (a 1000 mg twice daily). If you experience low blood sugar, treat this by eating a chewable fruit candy like skittles or jelly beans (about 8 pieces), 4 ounces (1/2 cup) of fruit juice (not diet), 1 tablespoon of honey or 4 glucose tablets. If your blood sugar is under 50, take double the amount of one of the above. Recheck your blood sugar in 15 minutes. She has glucose tablets. She will continue atorvastatin for hyperlipidemia. She will continue a low carbohydrate low sugar diet. She will have lab work done. Continue levothyroxine. Check TSH. Her blood pressure is elevated and has been at recent appointments. She attributes this to knee pain. We discussed indication for medication, but she wants to work on lifestyle modifications and continue weight loss efforts. Re-evaluate at follow up appointment. Follow up in 6 weeks. Orders: Orders AMB Hemoglobin A1c Today E11.65 - Type 2 diabetes mellitus with hyperglycemia, E11.9 - Type 2 diabetes mellitus without complications, Z13.9 - Encounter for screening, unspecified Creatinine Today E11.9 - Type 2 diabetes mellitus without complications Vitamin B12 Today Z91.89 - Other specified personal risk factors, not elsewhere classified AMB Glucose Monitoring Today E11.9 - Type 2 diabetes mellitus without complications Microalbumin, Random (w Creat) Today E11.9 - Type 2 diabetes mellitus without complications Lipid Panel Today E78.5 - Hyperlipidemia, unspecified TSH reflex Free T4 Today E03.9 - Hypothyroidism, unspecified Medications: New tirzepatide (Mounjaro) 7.5 mg (0.5 mL) subcut QWEEK 2 mL 2RF Changed From metformin ER 1,500 mg (3 x 500 mg) PO DAILY 180 tabs 1RF To metformin ER 1,000 mg (2 x 500 mg) PO BID 360 tabs 1RF 90 days From insulin degludec 26 units (0.13 mL) subcut BEDTIME 9 mL 5RF To insulin degludec 22 units subcut BEDTIME Discontinued tirzepatide (Mounjaro) Discontinued Reason: Doctor's Order 5 mg (0.5 mL) subcut QWEEK 2 mL 0RF Patient Instructions: Increase Mounjaro 7.5 mg weekly Stop Glipizide Increase Metformin to 1000 mg twice daily When you increase Mounjaro to 7.5 mg, decrease Tresiba to 22 units nightly. Please call the office if you exerpience low blood sugars. If you experience low blood sugar (under 70), treat this by eating a chewable fruit candy like skittles or jelly beans (about 8 pieces), 4 ounces (1/2 cup) of fruit juice (not diet), 1 tablespoon of honey or 4 glucose tablets. If your blood sugar is under 50, take double the amount of one of the above. Recheck your blood sugar in 15 minutes. Coding Level of Care Code Est Pt Level 4 (35375) Diagnoses Uncontrolled type 2 diabetes mellitus with hyperglycemia E11.65 Diabetes mellitus type: type 2 Hypertriglyceridemia E78.1 Obesity, class 1 E66.811 Hypothyroidism, unspecified type E03.9 Hypothyroidism type: unspecified CPT Codes Details - CPT: 89693 - Glucose monitoring, continuous-physician I&R ([id number])
[2025-09-28 08:47] VITALS: BP 140/74; PULSE 92; O2SAT 99; BMI 30.4
[2025-09-28 08:58] LABS: Glucose, Whole Blood 200 mg/dL (60-115)
== END 2025-09-28 09:33 | disposition home or self-care (01) ==
LOC: HO.ENCR 08:44
PROVIDERS: PCP Internal Medicine; Visit Provider Physician Assistant Medical
DX: E11.65 Type 2 diabetes mellitus with hyperglycemia (principal); E78.1 Pure hyperglyceridemia; E66.811 Obesity, class 1; E03.9 Hypothyroidism, unspecified; Z13.9 Encounter for screening, unspecified; E11.9 Type 2 diabetes mellitus without complications

== ENCOUNTER 2025-09-28 09:35 | Outpatient (REF) | payer MEDICARE, MEDICAID, SELFPAY ==
[2025-09-28 11:19] LABS: Cholesterol 119 mg/dL (<200); Estimated Glomerular Filt Rate > 60; HDL Cholesterol 31 mg/dL (>40); Triglycerides 157 mg/dL (<150)
[2025-09-28 11:31] LABS: Microalbum/Creatinine Ratio Ur 33.5 ug/mg cr (<30)
[2025-09-28 11:54] LABS: Vitamin B12 304 pg/mL (200-900)
== END 2025-09-28 09:36 | disposition home or self-care (01) ==
LOC: HO.10HDL 09:35
PROVIDERS: Visit Provider Physician Assistant Medical
DX: E11.65 Type 2 diabetes mellitus with hyperglycemia (principal); E03.9 Hypothyroidism, unspecified; E78.5 Hyperlipidemia, unspecified; Z91.89 Other specified personal risk factors, not elsewhere classified; Z13.89 Encounter for screening for other disorder
CPT/HCPCS: 36415; 80061; 82043; 82565; 82570; 82607; 82947; 83036; 84443; 99212

== ENCOUNTER 2025-09-30 09:50 | Outpatient (AMB) | payer MEDICARE, MEDICAID, SELFPAY ==
--- NOTE | 2025-09-30 09:54 | A.OFFVIS_ITS ---
Vital Signs 09/30/25 10:00 Height 4 ft 11 in Weight 149 lb BMI 30.1 BP 136/69 Blood Pressure Location Rt brachial Position Sitting Pulse 88 Intake Visit Reasons: s/p colon post op Intake Note: Patient returns to in office follow up s/p colonoscopy. CC: Patient report doing well and denies having any new GI symptoms. 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 She tolerated her last scope w/o problems. She has occasional CIC likely r/t her thyroid, she has been having increased HB over the past year she can not ID any food triggers, but it is worse at night. She used to be on an acid reducing medication but she does not remember which 1. She is not on 1 currently. She has also never been educated about what diet an d lifestyle changes may be needed to manage GERD so will print her a diet list and we discussed weight management. We also discussed eating earlier in the day which she has already been doing but she is trying to lose weight. Will start on famotidine which she can take it supper time and evaluate whether not she needs an endoscopy since she sometimes has the feeling of food moving down her esophagus but not out right dysphagia. She denies any cardiac or respiratory problems. There are no prior problems with anesthesia or sedation. No ID problems. There is no known FHX of crc or polyps. Orders: Orders Colonoscopy - GI Use Only 10/09/23 H Pylori Breath Test 10/09/23 Medications: New famotidine (Pepcid) 40 mg PO .qac supper 30 tabs 6RF K21.9 - Gastro-esophageal reflux disease without esophagitis sod picosulf-mag ox-citric ac 10 mg-3.5 gram- 12 gram/160 mL (Clenpiq) take first dose at 5-9PM evening before colonoscopy; 2nd dose the next day approximately 5 hrs before colonoscopy 160 mL PO DAILY 320 mL 0RF 2 doses LABS: Laboratory Tests 10/09/23 11:30 H. pylori Breath Test Negative COLONOSCOPY 08/06/25 Findings: Terminal Ileum: Not evaluated Cecum: Normal Ascending Colon: A 2 cms sessile polyp in the mid AC at 65 cms. Polyp was raised with 5 cc of [place] and removed with a stiff hot snare. Polypectomy site was closed with 2 hemoclips and marked with Deneen ink. Moderate diverticulosis scattered throughout entire colon. Transverse Colon: Moderate diverticulosis scattered throughout entire colon. Descending Colon: Moderate diverticulosis scattered throughout entire colon. Sigmoid Colon: Severe diverticulosis with luminal narrowing Rectum: Normal Ano-rectum: Normal Impression and Post Procedure Diagnosis: Colonoscopy Findings: One medium sized polyps was removed Moderate to severe diverticulosis seen in the entire colon Plan: Pt has a FU appointment on 08/25/25 with Anabel Che NP. Repeat Colonoscopy in 6 to 12 months if polyps is adenomatous check polypectomy site in the ascending colon. Above findings were reviewed with the patient and relevant handouts were given and the discharge area. BIOPSIES SHOWED: Colon, ascending at 65 cm, polyp: Tubular adenoma with serrated features; negative for high-grade dysplasia and carcinoma. Comment: Adenomatous crypts with cautery artifact are present at the base Letter sent to the patient with biopsy results Patient was placed on the colonoscopy recall list for repeat colonoscopy in 6 months. TODAY'S VISIT [facility] Medical History Obesity, class 1 Hypertriglyceridemia Well woman exam Rheumatoid arthritis Cholecystectomy planned Hypertension Diabetes Surgical History H/O colonoscopy (08/06/25) History of cholecystectomy Tubal ligation status H/O hysterectomy for benign disease Family History Maternal Aunt Uterine cancer Mother Diabetes Father Liver cancer Social History Housing: Apartment Alcohol intake: never Patient Tobacco Use Status: Former Tobacco user service: No Current occupational status: retired and disabled Cognitive needs: No Hearing needs: No Vision needs: Yes (rx glasses) Female Reproductive History Menstrual Age of Menarche: 11 Review of Systems Const Denies fatigue, Denies fever(s), Denies night sweats, Denies poor appetite and Denies weight loss ENT Details: GLASSES Reports Normal hearing present, Denies dental pain, Denies dysphagia, Denies hearing loss, Denies mouth pain, Denies odynophagia, Denies throat swelling, Denies tongue swelling and Reports other (Dentition adequate) Card Reports no additional complaints Resp Reports no additional complaints GI Details: Denies abdominal pain, Denies melena, Denies bloating, Denies hematochezia, Denies constipation, Denies GI cramping, Denies dysphagia, Denies excessive flatus, Denies early satiety, Reports heartburn, Denies diarrhea, Denies nausea, Denies odynophagia, Denies vomiting and Denies hematemesis Skin/Breast Denies pruritus, Denies lesions, Denies rash and Denies jaundice Neuro Reports Normal hearing present and Denies Abnormal speech present Endo Denies fatigue Aller/Immun Denies throat swelling and Denies tongue swelling Physical Exam Vital Signs: Last Vital Signs Pulse 88 09/30/25 10:00 BP 136/69 09/30/25 10:00 BMI result Body Mass Index 30.1 Const General: cooperative, no acute distress, well developed and well groomed Nutritional Appearance: well nourished and obese Orientation/consciousness: oriented to person, oriented to place and oriented to time Limitations: No language barrier HEENT Head: Yes normocephalic and Yes atraumatic Eyes General: appearance normal, both eyes and all related structures Pupils: Equal, round and reactive pupils present Neck Neck: Yes normal visual inspection and Yes no lymphadenopathy Thyroid: Thyroid normal Resp Effort & Inspection: normal respiratory effort and able to speak in complete sentences Auscultation: clear to auscultation bilaterally Cardio Rate: regular rate Rhythm: regular rhythm Heart sounds: Normal, physiologic split S2 sound present Peripheral pulses: radial pulses present and posterior tibial pulses present GI Inspection: No distended, No Abdominal panniculus present and Yes obesity Palpation (GI): Soft to palpation, nontender, no guarding, not rigid and No hepatosplenomegaly present Percussion: Yes normal to percussion Auscultation: normal bowel sounds Rectal Exam - Female: deferred Skin General skin exam: no rashes or lesions noted, turgor normal, skin not dry, no jaundice, No spider nevi and no striae Rashes: no rashes Nails: normal Neuro General: oriented to person, oriented to place and oriented to time Cranial nerves: Yes Equal, round and reactive pupils present and Yes Normal hearing present Speech: No Abnormal speech present Extrem General: Yes normal to inspection, No clubbing, No cyanosis and No edema Psych Appearance: grossly normal and well kempt Mental Status: mental status grossly normal Speech and movement: Normal speech and movement present Affect: normal affect Attitude: cooperative Thought process: Normal thought process present and not confabulating Thought content: Normal thought content present Insight: Good insight present (Psych) Judgement: Good judgement present (Psych) Assessment & Plan Assessment & Plan (1) Tubular adenoma of colon: Comment: 2mm TA 07/2025 with 6 mos follow up Code(s): D12.6 - Benign neoplasm of colon, unspecified Category: Medical Plan She is agreeable to the six-month recall. The procedure was well tolerated. The results were explained and the patient is agreeable to the follow-up interval as stated. The bowel pattern has returned to normal. Education was provided to tell any 1st degree relatives about their findings to be sure that they are screened by age 45. Educated that they will be put on a recall list when it is time for their repeat scope but should they move out of state or away from the hospital they will need to remember along with their primary to repeat the procedure in a timely fashion to avoid any adverse complications. Subjective Follow-up after colonoscopy to review findings and next steps. Patient reports the July colonoscopy identified a single large polyp that was removed. She was informed that two clips were placed and understands they will pass spontaneously. Bowel habits returned to normal after the procedure with no pain and no bleeding. She previously had a colonoscopy years ago that was normal. Heartburn has been well controlled with famotidine; no dysphagia. Plans to travel to [place] in and return before January to accommodate scheduling of the next colonoscopy. Relevant Past Medical, Social, and Family History Previously normal colonoscopy years prior. Seasonal travel to [place] (relevant to scheduling follow-up). Objective - Colonoscopy on August 06: single large colonic polyp removed; two clips placed. - H. pylori urea breath test: negative. Assessment & Plan Post-polypectomy surveillance after removal of a large colonic polyp: Single large polyp removed on 08/06; plan for short-interval surveillance to assess for potentially rapid polyp growth and prevent progression to cancer. - Order placed for repeat colonoscopy at 6 months from July (target January). - Scheduling team to contact the patient; if no appointment is set by January, patient to call the office to arrange. - Reassurance provided that endoscopic clips will pass spontaneously. Heartburn: Symptomatic improvement with famotidine; H. pylori breath test negative. No dysphagia. - Continue famotidine as previously prescribed. - Refills may be managed through PA as discussed. - Return if symptoms worsen or new alarm features develop. Orders: Referrals GI Procedure Notification D1.6 - Benign neoplasm of colon, unspecified Medications: New sodium,potassium,mag sulfates 17.5-3.13-1.6 gram (Suprep Bowel Prep Kit) 480 mL orally; FOR COLONOSCOPY PREP 354 mL 0RF Coding Level of Care Code Est Pt Level 3 (06216) Diagnoses Tubular adenoma of colon D1.6
[2025-09-30 10:00] VITALS: BP 136/69; PULSE 88; BMI 30.1
== END 2025-09-30 10:21 | disposition home or self-care (01) ==
LOC: HO.HGI 09:51
PROVIDERS: PCP Internal Medicine; Visit Provider Nurse Practitioner
DX: D12.6 Benign neoplasm of colon, unspecified (principal)
CPT/HCPCS: 99213

== ENCOUNTER → 2025-09-30 09:50 | Outpatient (BNVA) | payer MEDICARE, MEDICAID, SELFPAY | PROVIDERS: PCP Internal Medicine; Visit Provider Nurse Practitioner | DX: D12.6 Benign neoplasm of colon, unspecified (principal); Z98.890 Other specified postprocedural states; K21.9 Gastro-esophageal reflux disease without esophagitis; Z87.891 Personal history of nicotine dependence; E66.9 Obesity, unspecified; Z68.31 Body mass index [BMI] 31.0-31.9, adult | CPT/HCPCS: 99212 ==

== ENCOUNTER 2025-10-04 13:47 | Outpatient (AMB) | payer MEDICARE, MEDICAID, SELFPAY ==
--- NOTE | 2025-10-04 13:48 | MHC.PC.OV ---
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 blood-glucose,shipper/receiver,cont (FreeStyle Richard 3 [place]) Use daily to monitor blood glucose levels continuously. famotidine 40 mg PO QPM folic acid 1 mg PO DAILY glucose (Dex4 Glucose Quick Dissolve) 16 grams (4 x 4 gram) PO Q15M PRN insulin degludec 22 units subcut BEDTIME levothyroxine (Levo-T) 125 mcg PO DAILY metformin ER 1,000 mg (2 x 500 mg) PO BID 90 days methotrexate sodium 25 mg (10 x 2.5 mg) PO QWEEK oxycodone-acetaminophen 5-325 mg 1 tab PO DAILY PRN tirzepatide (Mounjaro) 5 mg subcut QWEEK tirzepatide (Mounjaro) 7.5 mg (0.5 mL) subcut QWEEK zolpidem 10 mg PO BEDTIME Tobacco use date assessed: 01/27/25 Dental Screening Dental Screen Date: 01/27/25 HPI HPI Comments History of Present Illness Details 60-year-old female with history of type 2 diabetes, hypertension, hypothyroidism, rheumatoid arthritis presents to the office today for follow-up. Type 2 diabetes-last hemoglobin A1c 8.8%. Has recently initiated care with endocrinology. Has Dexcom with glucose levels typically in the 170s. Metformin increased to 1000mg twice, glipizide discontinued. On mounjaro 7.5mg weekly. Still on degludec 22units, goal to come off insulin. Working on weight loss Hypothyroidism-on levothyroxine. Reports she is taking the medication in the morning with all of her other medications. Rheumatoid arthritis- following with Dr. Golden, Rheumatology. Symptoms controlled with methotrexate and abatacept infusion. Osteoarthritis- b/l knees L>R. Follows with Has tried gel injections 3 times. Still following with Dr. Golden, but he is referring to [facility]. Contemplating. Using oxycodone BID currently, prescribed as once daily. Insomnia- on zolpidem 10mg Concerns: Knee pain as above Health maintenance: Last mammogram 05/18/25 Last Pap smear 2020, next due 2025. Follows with [employer] annually Last colonoscopy 07/2025, Dr. May ROS: General: No fevers, malaise, unintentional weight loss HEENT: No blurred vision, diplopia. No sore throat, nasal congestion, rhinorrhea, sinus pain, ear pain. See HPI Cardiovascular: No chest pain, palpitations, or leg edema Respiratory: No shortness of breath, wheezing, cough GI: No abdominal pain, nausea, vomiting, diarrhea, constipation, melena, hematochezia : No dysuria, hematuria, increased urinary frequency, decreased urinary output MSK: No myalgia, back pain. See HPI Neuro: No headaches, weakness, paresthesias Skin: No rashes or lesions EXAM: Constitutional - Awake and Alert, No apparent distress Eyes - PERRL Mouth-mucosa moist. Posterior oropharynx erythematous but without any tonsillar edema or exudates. Airway patent. Posterior cobblestoning noted Cardiovascular - S1S2, RRR, No edema Respiratory - Normal lung expansion, Normal respiratory effort, No respiratory distress, CTA bilaterally Extremities - no calf tenderness bilaterally, no swelling Skin - Warm/Dry Neurological - Alert & oriented x3 Psychological - Appropriate affect [facility] Medical History (Updated 10/04/25 @ 14:36 by BARBARA Rivera) Osteoarthritis of knees, bilateral Obesity, class 1 Hypertriglyceridemia Well woman exam Rheumatoid arthritis Cholecystectomy planned Hypertension Diabetes Surgical History H/O colonoscopy (08/06/25) History of cholecystectomy Tubal ligation status H/O hysterectomy for benign disease Family History Maternal Aunt Uterine cancer Mother Diabetes Father Liver cancer Social History Housing: Apartment Alcohol intake: never Patient Tobacco Use Status: Former Tobacco user service: No Current occupational status: retired and disabled Cognitive needs: No Hearing needs: No Vision needs: Yes (rx glasses) Female Reproductive History Menstrual Age of Menarche: 11 Questionnaire Thrive Questionnaire Date Thrive assessed: 01/27/25 DEX-7 AMB Questionnaire DEX-7 Date DEX - 7 assessed: 01/27/25 Source: Developed by Drs. Shaji Renner, Shoshana Shelton, Kj Pierre and colleagues, with an educational king from [employer]. Physical exam (Primary Care) Vital Signs: Last Vital Signs Temp 97.6 F 10/04/25 13:58 Pulse 89 10/04/25 13:58 Resp 18 10/04/25 13:58 BP 140/66 H 10/04/25 13:58 Pulse Ox 98 10/04/25 13:58 Oxygen Delivery Method Room Air 10/04/25 13:58 BMI result Body Mass Index 29.3 Tobacco/Smoking Status: Tobacco use Status Tobacco use date assessed 01/27/25 10/04/25 13:50 Patient Tobacco Use Status Former Tobacco user 10/04/25 13:50 Thrive Assessment: Date of Thrive Assessment Date Thrive assessed 01/27/25 10/04/25 13:50 Coding Level of Care Code Est Pt Level 4 (85026) Complex visit Add On G2211 Diagnoses Diabetes E11.9 Rheumatoid arthritis M06.9 Laryngitis J04.0 Hypothyroidism, unspecified type E03.9 Hypothyroidism type: unspecified Hypertension I10 Hypertriglyceridemia E78.1 Osteoarthritis of knees, bilateral M17.0 Assessment & Plan Assessment & Plan (1) Diabetes: Code(s): E11.9 - Type 2 diabetes mellitus without complications Category: Medical Plan: Improved but remains uncontrolled with A1c 8.8%. She is now following with endocrinology and should continue doing so. Continue with Dexcom and monitor sugars closely. Continue with Mounjaro 7.5 mg weekly, metformin 1000 mg twice daily as well as insulin 22 units, adjust as advised. Diabetic diet. Annual eye exams and foot exams (2) Rheumatoid arthritis: Code(s): M06.9 - Rheumatoid arthritis, unspecified Category: Medical Plan: Stable. Continue following with Rheumatology. Continue methotrexate and abatacept as advised by Rheumatology (3) Laryngitis: Code(s): J04.0 - Acute laryngitis Category: Medical Plan: Will check for strep pyogenes. However discussed that laryngitis is typically viral in nature and supplementing. Recommend warm saltwater gargles and vocal rest. Can also use nasal sprays to help manage any postnasal drip that may be contributing to symptoms. (4) Hypothyroid: Code(s): E03.9 - Hypothyroidism, unspecified Category: Medical Qualifiers: Hypothyroidism type: unspecified Qualified Code(s): E03.9 - Hypothyroidism, unspecified Plan: Euthyroid. Continue on levothyroxine 125 mcg daily. (5) Hypertension: Code(s): I10 - Essential (primary) hypertension Category: Medical Plan: Controlled on recheck. Continue monitor closely. (6) Hypertriglyceridemia: Code(s): E78.1 - Pure hyperglyceridemia Category: Medical Plan: Stable. Continue atorvastatin (7) Osteoarthritis of knees, bilateral: Code(s): M17.0 - Bilateral primary osteoarthritis of knee Category: Medical Plan: Pain levels uncontrolled with end-stage arthritis. Increase oxycodone to 5 mg twice daily. Mass pat reviewed. Counseled on side effects. Given she is taking the medication with zolpidem, decreased prescription prescribed. Discussed that increase in oxycodone short-term once she has had replacements, we will be tapered off. We will need better glucose control prior to TKA Plan Follow-up in 4 months. Labs to be completed as ordered. Orders: Orders Basic Metabolic Panel 4 Months E03.9 - Hypothyroidism, unspecified, E11.9 - Type 2 diabetes mellitus without complications, E66.811 - Obesity, class 1, E78.1 - Pure hyperglyceridemia, I10 - Essential (primary) hypertension, M06.9 - Rheumatoid arthritis, unspecified Hemoglobin A1c 4 Months E03.9 - Hypothyroidism, unspecified, E11.9 - Type 2 diabetes mellitus without complications, E66.811 - Obesity, class 1, E78.1 - Pure hyperglyceridemia, I10 - Essential (primary) hypertension, M06.9 - Rheumatoid arthritis, unspecified Microalbumin, Random (w Creat) 4 Months E03.9 - Hypothyroidism, unspecified, E11.9 - Type 2 diabetes mellitus without complications, E66.811 - Obesity, class 1, E78.1 - Pure hyperglyceridemia, I10 - Essential (primary) hypertension, M06.9 - Rheumatoid arthritis, unspecified Medications: New zolpidem 5 mg PO BEDTIME 30 tabs 0RF Changed From oxycodone-acetaminophen 5-325 mg 1 tab PO DAILY PRN 30 tabs 0RF pain M06.9 - Rheumatoid arthritis, unspecified To oxycodone-acetaminophen 5-325 mg 1 tab PO BID PRN 60 tabs 0RF pain M06.9 - Rheumatoid arthritis, unspecified Discontinued zolpidem Discontinued Reason: Doctor's Order 10 mg PO BEDTIME 30 tabs 0RF
[2025-10-04 13:58] VITALS: BP 140/66; PULSE 89; RESP 18; TEMP 36.4; O2SAT 98; BMI 29.3
[2025-10-04 14:32] VITALS: BP 136/72
== END 2025-10-04 14:33 | disposition home or self-care (01) ==
PROVIDERS: PCP Physician Assistant; Visit Provider Physician Assistant
DX: E11.9 Type 2 diabetes mellitus without complications (principal); M06.9 Rheumatoid arthritis, unspecified; J04.0 Acute laryngitis; E03.9 Hypothyroidism, unspecified; I10 Essential (primary) hypertension; E78.1 Pure hyperglyceridemia; M17.0 Bilateral primary osteoarthritis of knee

== ENCOUNTER → 2025-10-04 13:47 | Outpatient (BNVA) | payer MEDICARE, MEDICAID, SELFPAY | PROVIDERS: PCP Internal Medicine; Visit Provider Physician Assistant | DX: E11.9 Type 2 diabetes mellitus without complications (principal); M06.9 Rheumatoid arthritis, unspecified; J04.0 Acute laryngitis; E03.9 Hypothyroidism, unspecified; I10 Essential (primary) hypertension; E78.1 Pure hyperglyceridemia; M17.0 Bilateral primary osteoarthritis of knee; Z79.4 Long term (current) use of insulin; Z87.891 Personal history of nicotine dependence; Z79.890 Hormone replacement therapy | CPT/HCPCS: 99212 ==